=== PATIENT | female | born 1955 | race Caucasian/White ===

== ENCOUNTER 2017-08-19 23:10 | Inpatient (IN) | payer OTHER ==
[~2017-08-19] VITALS: Ht 170.2 cm; Wt 91.7 kg
[2017-08-19] MEDS ORDERED: TYLE325T PO (23:23)
[2017-08-19 23:24] VITALS: BP 165/89; PULSE 92; RESP 18; TEMP 97.5; O2SAT 95
[2017-08-19 23:29] VITALS: O2SAT 95
[2017-08-20] VITALS (19 sets, daily range): BP systolic 120–164; BP diastolic 63–94; PULSE 72–109; RESP 16–27; TEMP 97.8–99; O2SAT 96–98
[2017-08-20 00:01] LABS: AUTOMATED NEUTROPHIL # 6.6 TH/MM3 (1.8-7.7); BASOPHIL # 0.1 TH/MM3 (0-0.2); BASOPHIL % 0.7 % (0.0-2.0); EOSINOPHIL # 0.4 TH/MM3 (0-0.4); EOSINOPHIL % 3.9 % (0.0-4.0); HEMATOCRIT 38.5 % (35.0-46.0); HEMO FLAGS DIFF FINAL; LYMPH % 27.4 % (9.0-44.0); LYMPHOCYTE # 2.9 TH/MM3 (1.0-4.8); MEAN CELL VOLUME 93.4 FL (80.0-100.0); MEAN CORPUSCULAR HEMOGLOBIN 31.1 PG (27.0-34.0); MEAN CORPUSCULAR HGB CONC 33.3 % (32.0-36.0); MONO % 5.5 % (0.0-8.0); NEUT % 62.5 % (16.0-70.0); PLATELET COUNT 299 TH/MM3 (150-450); RED BLOOD COUNT 4.12 MIL/MM3 (4.00-5.30); RED CELL DISTRIBUTION WIDTH 12.3 % (11.6-17.2); WHITE BLOOD COUNT 10.6 TH/MM3 (4.0-11.0)
[2017-08-20 00:02] LABS: POTASSIUM 4.1 MEQ/L (3.5-5.1)
--- NOTE | 2017-08-20 00:05 | RADRPT ---
EXAM DATE/TIME: 08/19/2017 23:43 [place] COMPARISON: No previous studies available for comparison. INDICATIONS : Chest pain. MEDICAL HISTORY : None. SURGICAL HISTORY : None. ENCOUNTER: Initial ACUITY: 1 day PAIN SCORE: 6/10 LOCATION: Bilateral chest FINDINGS: PA and lateral views of the chest demonstrate the lungs to be symmetrically aerated without evidence of mass, infiltrate or effusion. The cardiomediastinal contours are unremarkable. Osseous structure s are intact. CONCLUSION: No acute disease. Willam Smith MD on August 20, 2017 at 0:04 Board Certified Radiologist. This report was verified electronically.
--- NOTE | 2017-08-20 00:17 | PD ---
HPI Chief Complaint: Chest Pain Time Seen by Provider: 00:15 Travel History International Travel<30 days: No Contact w/Intl Traveler<30days: No Traveled to known affect area: No History of Present Illness HPI The patient is a 61-year-old female that complains of a tightness in her lower sternal area today beginning at noon. The pain lasted 5-10 minutes and went away. It came on several times today. She is in no pain now. She denies any nausea but does have some shortness of breath and diaphoresis associated with the pain. She denies any radiation of pain. Her last stress test and was over 4 years ago. FORMERLY [facility], [facility] Past Medical History Diminished Hearing: No Fibromyalgia: Yes GERD: Yes Headaches: Yes Hypertension: Yes Musculoskeletal: Yes (Back pain, Back surgery x3) Tetanus Vaccination: Never Vaccinated Influenza Vaccination: No ?: Not Past Surgical History Section: Yes Social History Alcohol Use: No Tobacco Use: Yes (2 pack per day) Substance Use: Yes (marijuana daily) Allergies-Medications (Allergen,Severity, Reaction): Coded Allergies: codeine (Verified Allergy, Severe, 08/19/17) Reported Meds & Prescriptions Reported Meds & Active Scripts Active Reported Tylenol (Acetaminophen) 325 Mg Tab 325 Mg PO DIRECTED Review of Systems Except as stated in HPI: all other systems reviewed are Neg Physical Exam Narrative GENERAL: [-] The patient is alert, oriented 3 in no apparent distress. Her vital signs show temperature 97.5 with pulse 92 and blood pressure 165/89 but otherwise normal. SKIN: Focused skin assessment warm/dry. HEAD: Atraumatic. Normocephalic. EYES: Pupils equal and round. No scleral icterus. No injection or drainage. ENT: No nasal bleeding or discharge. Mucous membranes pink and moist. NECK: Trachea midline. No JVD. CARDIOVASCULAR: Regular rate and rhythm. No murmur appreciated. RESPIRATORY: No accessory muscle use. Clear to auscultation. Breath sounds equal bilaterally. GASTROINTESTINAL: Abdomen soft, non-tender, nondistended. Hepatic and splenic margins not palpable. No guarding or rebound is present. MUSCULOSKELETAL: No obvious deformities. No clubbing. No cyanosis. No edema. NEUROLOGICAL: Awake and alert. No obvious cranial nerve deficits. Motor grossly within normal limits. Normal speech. PSYCHIATRIC: Appropriate mood and affect; insight and judgment normal. Data Data Last Documented VS Vital Signs Date Time Temp Pulse Resp B/P (MAP) Pulse Ox O2 Delivery O2 Flow Rate FiO2 08/20/17 00:29 86 16 164/82 (109) 97 Room Air 08/19/17 23:24 97.5 Orders Orders Electrocardiogram (08/19/17 23:20) Complete Blood Count With Diff (08/19/17 23:20) Basic Metabolic Panel (Bmp) (08/19/17 23:20) Ckmb (Isoenzyme) Profile (08/19/17 23:20) Troponin I (08/19/17 23:20) Iv Access Insert/Monitor (08/19/17 23:20) Ecg Monitoring (08/19/17 23:20) Oxygen Administration (08/19/17 23:20) Oximetry (08/19/17 23:20) Chest, Pa & Lat (08/19/17 ) Aspirin Chew (Aspirin Chew) (08/20/17 00:30) Nitroglycerin Sl (Nitrostat Sl) (08/20/17 00:30) Admit Order (Ed Use Only) (08/20/17 01:34) Labs Laboratory Tests Test 08/19/17 23:37 White Blood Count 10.6 TH/MM3 Red Blood Count 4.12 MIL/MM3 Hemoglobin 12.8 GM/DL Hematocrit 38.5 % Mean Corpuscular Volume 93.4 FL Mean Corpuscular Hemoglobin 31.1 PG Mean Corpuscular Hemoglobin Concent 33.3 % Red Cell Distribution Width 12.3 % Platelet Count 299 TH/MM3 Mean Platelet Volume 7.9 FL Neutrophils (%) (Auto) 62.5 % Lymphocytes (%) (Auto) 27.4 % Monocytes (%) (Auto) 5.5 % Eosinophils (%) (Auto) 3.9 % Basophils (%) (Auto) 0.7 % Neutrophils # (Auto) 6.6 TH/MM3 Lymphocytes # (Auto) 2.9 TH/MM3 Monocytes # (Auto) 0.6 TH/MM3 Eosinophils # (Auto) 0.4 TH/MM3 Basophils # (Auto) 0.1 TH/MM3 CBC Comment DIFF FINAL Differential Comment Prothrombin Time 10.5 SEC Prothromb Time International Ratio 1.0 RATIO Activated Partial Thromboplast Time 28.7 SEC Blood Urea Nitrogen 10 MG/DL Creatinine 0.84 MG/DL Random Glucose 115 MG/DL Calcium Level 8.4 MG/DL Sodium Level 137 MEQ/L Potassium Level 4.1 MEQ/L Chloride Level 105 MEQ/L Carbon Dioxide Level 26.0 MEQ/L Anion Gap 6 MEQ/L Estimat Glomerular Filtration Rate 69 ML/MIN Total Creatine Kinase 56 U/L Troponin I 0.16 NG/ML [facility] Medical Decision Making Medical Screen Exam Complete: Yes Emergency Medical Condition: Yes Medical Record Reviewed: Yes Interpretation(s) The EKG shows sinus rhythm with a rate of [address] elevation or depression. Nonspecific T-wave inversion is present on aVL. The basic metabolic profile shows a GFR of 69 with calcium 8.4 but is otherwise normal. The CK is normal but the troponin I is 0.16. The CBC is normal. The chest x- ray shows no acute disease. Differential Diagnosis STEMI, non-STEMI, acute coronary syndrome, chest pain etiology undetermined, esophageal pain, pleuritic pain, gastrointestinal pain, chest wall pain, pericarditis Narrative Course The patient may have unstable angina. She has no chest pain at this time but does have a slight elevation of her troponin I. This could be a non-STEMI. Physician Communication Physician Communication I discussed the patient with Dr. Villegas, the patient will be admitted to her at the ICU here at [facility]. Diagnosis Primary Impression: Non-STEMI (non-ST elevated myocardial infarction) Admitting Information Admitting Physician Requests: Admit Monty Garcia MD Aug 20, 2017 00:17
[2017-08-20] MEDS: NITROGLYCERIN 0.4 MG SL 25 TABS/BTL SL SCH ×3 (00:30→00:40)
[2017-08-20] MEDS ORDERED: ASPIRIN 81 MG CHEW TAB PO ONE (00:30)
[2017-08-20] MEDS ORDERED: HEPARIN SODIUM - IV 10,000 UNITS/10 ML VIAL IV PUSH ONE (01:45)
[2017-08-20] MEDS ORDERED: HEPARIN-D5W 25,000 U/250 ML 250 ML IV PRN (01:45)
[2017-08-20] MEDS ORDERED: NALOXONE HCL 0.4 MG/ML AMP IV PUSH PRN (01:45)
[2017-08-20] MEDS ORDERED: NITROGLYCERIN 2% OINT 1 GM PACKET TOP ONE (01:45)
[2017-08-20] MEDS ORDERED: NITROGLYCERIN 0.4 MG SL 25 TABS/BTL SL PRN (01:45)
[2017-08-20] MEDS ORDERED: SODIUM CHLORIDE 0.9% FLUSH 10 ML FLUSH IV FLUSH PRN ×2 (01:45→11:45)
[2017-08-20 02:43] LABS: APTT (PATIENT) 28.7 SEC (24.3-30.1); PROTHROMBIN TIME - PATIENT 10.5 SEC (9.8-11.6)
[2017-08-20] MEDS ORDERED: CHLORHEXIDINE GLUCONATE 2 % 1 PACK (2 CLOTHS)(extra cloths) TOPICAL PRN (03:15)
[2017-08-20] MEDS: CHLORHEXIDINE GLUCONATE 2 % 1 PACK (2 CLOTHS)(taper/protocol) TOPICAL SCH ×2 (03:19→19:57)
[2017-08-20] MEDS ORDERED: HEPARIN SODIUM - IV 10,000 UNITS/10 ML VIAL IV PUSH PRN ×2 (07:45)
[2017-08-20] MEDS ORDERED: SODIUM CHLORIDE 0.9% FLUSH 10 ML FLUSH IV FLUSH SCH (09:00)
[2017-08-20] MEDS: SODIUM CHLOR 0.9% 1000 ML INJ 1,000 ML IV SCH ×2 (09:21→19:21)
[2017-08-20] MEDS ORDERED: diphenhydrAMINE HCL 50 MG CAP PO SCH (09:30)
[2017-08-20] MEDS ORDERED: DIAZEPAM 5 MG TAB PO SCH (09:30)
[2017-08-20] MEDS ORDERED: ASPIRIN 325 MG TAB PO SCH (09:30)
[2017-08-20] MEDS ORDERED: HEPARIN-NS/PF INJ 1,000 ML ONE ×2 (09:58→09:59)
[2017-08-20] MEDS ORDERED: MIDAZOLAM HCL 2 MG/2 ML VIAL ONE (10:00)
--- NOTE | 2017-08-20 10:10 | EKG ---
Date Performed: 08/20/2017 Time Performed: 05:29:29 PTAGE: 61 years EKG: Sinus rhythm POSSIBLE LEFT ATRIAL ENLARGEMENT BORDERLINE ECG PREVIOUS TRACING : 08/19/2017 23.28 Compared to prior tracing no significant change DOCTOR: Luz Goode Interpretating Date/Time 08/20/2017 10:08:45
--- NOTE | 2017-08-20 10:22 | EKG ---
Date Performed: 08/19/2017 Time Performed: 23:28:15 PTAGE: 61 years EKG: Sinus rhythm POSSIBLE LEFT ATRIAL ENLARGEMENT NONSPECIFIC T-WAVE ABNORMALITY BORDERLINE ECG PREVIOUS TRACING : 02/04/2004 03.41 Compared to prior tracing no significant change DOCTOR: Luz Goode Interpretating Date/Time 08/20/2017 10:21:01
[2017-08-20] MEDS ORDERED: BIVALIRUDIN 250 MG VIAL ONE (10:39)
[2017-08-20] MEDS ORDERED: NITROGLYCERIN INJ 5 ML ONE (11:01)
[2017-08-20] MEDS ORDERED: TICAGRELOR 90 MG TAB PO ONE (11:01)
[2017-08-20] MEDS ORDERED: BIVALIRUDIN INJ 250 MG in SODIUM CHLORIDE 0.9% INJ 50 ML IV SCH (11:36)
--- NOTE | 2017-08-20 11:38 | CATHPROC ---
[facility] HIS Report Study Information Study Number Admission Scheduled Start Study Start [id number] Aug 20 2017 1:36AM 08/20/2017 Aug 20 2017 9:48AM [place] [facility] Cardiac Catheterization Admit Source Facility Department Transfer in from another acute care facility [facility] Physician and Clinical Staff Initial Lukas Ascencio Attending Radiologistaroldo Cannon RN, Nadira Royal,ALEJANDRINA Recorder Bre Chatman,RT(R) ScrBarrett Stover,RT(R) Procedures Performed Procedure Location (Site) Vessel Name Angiogram LV LV Ventricle Coronary Angiograms LCA Left Coronary Coronary Angiograms RCA Right Coronary Drug Eluting Inflatio DIAG1 Mid Left Coronary L Heart Cath Wire insertion Fem Art (right) Femoral Art Equipment Time Skeet Operator Description Size Mfg Part Number Used/Scraped WIRE, BALANCE MIDDLEWEIGHT [id number] 10:50 [employer] 190CM Used 190CM *[id number] TRANSDUCER, TRUWAVE [id number] 10:13 CARROLL KERN * Used W/STOCKCOCK *[id number] *[id number] [id number] *[id number] PIGTAIL ANG. 145 INFINITI [id number] CATHETER *[id number] *[id number] 10:13 [employer]al[employer] INDUSTRIES PACK, CCL CUSTOM * Used *[id number] 10:13 SampalRx PACER PEN, SKIN DUAL W/ RULER * Used *[id number] 11:04 MEDTRONIC STENT, 2.75 12MM BIB 2.75 12MM Used *[id number] 11:07 MEDTRONIC STENT, 3.0 15MM BIB 3.0 15MM Used *[id number] 11:05 Novadiol 30 JEMMA INDEFLATOR Used *[id number] 10:13 MTailor MEDICAL SHEATH, FR6.5 PRELUDE 11CM FR 6.5 038ACT Used *[id number] 10:13 Novadiol WIRE, 3MMJ .035 180CM 180CM Used *[id number] 10:13 NAMIC MANIFOLD, 4 PORT * Used *[id number] 10:13 NYCOMED OMNIPAQUE, 350 MG, 100ML 100ML [id number] Used [id number] 10:13 [facility] BLANKET,WARM AIR CCL * Used *[id number] Equipment Model, Serial, Lot Number and Expiration Data Description Model Number Serial Number Lot Number Expiration Date STENT, 2.75 12MM BIB [id number] 02-26-2019 STENT, 3.0 15MM BIB [id number] 05-04-2019 History: Current Medications Medication Dosage/Unit Route Frequency Last Date/Time Taken 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 History: Allergies Allergy Reaction codeine History: Risk Factors Family History of Hypertension Dyslipidemia Previous [place] Previous Heart Failure Premature CAD Yes Yes Yes No No Prior Valve Prior PCI Prior CABG Surgery No No No Cerebrovascular Peripheral Artery Chronic Lung On Dialysis Diabetes Disease Disease Disease No No No No No History: Symptoms/Diagnosis Selection Items Chest pain History: Stress Tests Stress or Imaging Studies Performed No History: Other Disease Selection Items Gerd HTN History: Other Current Smoker Method Quit Packs a Day Years Used Pack Years No Cigarettes 6 Years Ago 2 45 90 Labs Hgb (g/dl) Hct (%) WBC (l/cumm) Platelets (thousands) 11.60-17.00 35.00-51.00 4.00-11.00 150.00-450.00 12.8 38.5 10.6 299 Glucose (mg/dl) BUN (mg/dl) Creatinine (mg/dl) BUN:Creatinine (1:x) 74.00-106.00 7.00-18.00 0.50-1.30 10.00-20.00 69 10 0.8 12.5 Na (meq/l) K (meq/l) 136.00-145.00 3.50-5.10 137 4.1 INR (PTT:PT) 0.90-1.10 1 Troponin I (ng/ml) CPK (u/l) CPK-MB (ng/ML) 0.02-0.05 26.00-308.00 0.50-3.60 0.47 67 Not Drawn Medication Medication Total Dose (Bolus/Oral) Medication Total Dosage/Unit 1% XYLOCAINE 20 mL ANGIOMAX BOLUS 13.5 mL BRILINTA 180 mg FENTANYL 150 mcg NTG (IC) 400 mcg VERSED 1 mg Medications (Bolus/Oral) Medication Time Given Dosage/Unit Administered By Reason VERSED 08/20/2017 10:25:09 AM 1 mg Nadira Brown 1 mg VERSED given in lab by Nadira Brown RN in Right Hand via Peripheral IV. Ordered by Vi Mobley. FENTANYL 08/20/2017 10:29:53 AM 50 mcg Nadira Brown 50 mcg FENTANYL given in lab by Nadira Brown RN in Right Hand via Peripheral IV. Ordered by Lukas Sorensen. 1% XYLOCAINE 08/20/2017 10:31:00 AM 20 mL Lukas Mobley 20 mL 1% XYLOCAINE given in lab by Lukas Mobley in Right Groin via Subcutaneous. FENTANYL 08/20/2017 10:37:00 AM 50 mcg Nadira Brown 50 mcg FENTANYL given in lab by Nadira Brown, ALEJANDRINA in Right Hand via Peripheral IV. Ordered by Lukas Sorensen. ANGIOMAX BOLUS 08/20/2017 10:53:14 AM 13.5 mL Nadira Brown 13.5 mL ANGIOMAX BOLUS given in lab by Nadira Brown RN in Right Hand via Peripheral IV. Ordered b Lukas Max. NTG (IC) 08/20/2017 11:00:00 AM 200 mcg Lukas Mobley 200 mcg NTG (IC) given in lab by Lukas Mobley in Right Groin via Intra-coronary. NTG (IC) 08/20/2017 11:01:21 AM 100 mcg Lukas Mobley 100 mcg NTG (IC) given in lab by Lukas Mobley in Right Groin via Intra-coronary. NTG (IC) 08/20/2017 11:02:33 AM 100 mcg Lukas Mobley 100 mcg NTG (IC) given in lab by Lukas Mobley in Right Groin via Intra-coronary. FENTANYL 08/20/2017 11:14:29 AM 50 mcg Nadira Brown 50 mcg FENTANYL given in lab by Nadira Brown RN in Right Hand via Peripheral IV. Ordered by Lukas Sorensen. BRILINTA 08/20/2017 11:27:10 AM 180 mg Nadira Brown 180 mg BRILINTA given in lab by Nadira Brown, ALEJANDRINA via Oral. Ordered by Lukas Mobley. Medication (Drip) Medication Time Given Dosage/Unit Concentration/Unit Diluent (ml) Solution ANGIOMAX DRIP 08/20/2017 10:54:05 AM 1.716 mg/kg/hr 250 mg 50 NaCl .9 1.716 mg/kg/hr ANGIOMAX DRIP given in lab by Nadira Brown RN in Right Hand via Peripheral IV. Pum p/Drip Flow = 31.5 ml/hr using NaCl .9 with a concentration of 250 mg in 50 ml. Ordered by Lukas Mobley. HEPARIN DRIP STOPPED 08/20/2017 9:50:00 AM 1000 units/hr 0 1000 units/hr HEPARIN DRIP STOPPED given by Nadira Brown RN in Right Hand via Peripheral IV. Pump /Drip Flow = 0 ml/hr using [Solution Name]. IV Solutions 08/20/2017 10:02:31 AM 50 mL (IV) NaCl .9 IV Solutions given in lab by Nadira Brown RN in Right Hand via Peripheral IV. Pump/Drip Flow usin g NaCl .9. NITROGLYCERIN DRIP 08/20/2017 11:22:41 AM 10 mcg/min 50 mg 250 D5W 10 mcg/min NITROGLYCERIN DRIP given in lab by Nadira Brown RN in Right Hand via Peripheral IV. Pu mp/Drip Flow = 3 ml/hr using D5W with a concentration of 50 mg in 250 ml. Ordered by Lukas Mobley. Initial Case Assessment Cardiovascular HR Rhythm NIBP Chest Pain 93 tachy 169/101 0 Edema Present Skin color Skin None Normal Warm Dry Circulatory - Right Pulses Dorsalis Pedis Femoral 1 3 Scale (0,1,2,3,4,d) Circulatory - Left Pulses Dorsalis Pedis Femoral 1 3 Scale (0,1,2,3,4,d) Neurological State Oriented to time-place- Alert Moves all extremities person Respiration - General Respiration Rate SpO2 (%) (B/min) 20 97 Chronological Log Time Study Chronological Log 1000 units/hr HEPARIN DRIP STOPPED given by Nadira Brown RN in Right Hand via Peripheral IV. Pump/Drip Flow = 9:50:00 0 ml/hr using [Solution Name]. 9:57:21 Patient arrived via Bed. Vitals capture started with the following parameters, Patient=Adult, Interval=5 min, Initial Bqbdjopr=446 mmHg, 10:01:59 Deflation Rate=5 mmHg, Cuff placed on Left Arm 10:02:03 Patient Name, D.O.B, / Armband Verified By R.N. 10:02:04 Consent signed by the physician and the patient and verified by the [facility] staff. 10:02:05 Pre-op and post- op instructions given; patient acknowledges understanding of instruction s. 10:02:06 Verbal Stimulation=2 Physical Stimulation=2 Airway=2 Respiration=2 TOTAL=8. (0=absent, 1=li mited, 2=present) 10:02:11 Skin Breakdown- none per pt 10:02:11 Patient has been NPO for More than 6Hrs. 10:02:12 Patient Warmer Placed on the Table. 10:02:13 Manjeet Prominences Protected 10:02:15 A # 20 IV was noted in the Hand (right). Grade = 0 10:02:31 IV Solutions given in lab by Nadira Brown RN in Right Hand via Peripheral IV. Pump/Drip Flow using NaCl .9. 10:02:42 History and physical on the chart or being dictated. Assessment: Initial Case, HR=93 BPM, Rhythm=tachy, NTDT=634/101 mmhg, Chest Pain=0, Edema=None, Color=Normal, Skin = Warm, Dry Right Pulses: Madhu Ped=1, Femoral=3 10:02:43 Left Pulses: Madhu Ped=1, Femoral=3 Neurological: State=Alert, Ox3, FUENTES Respiration: Resp=20 B/min, SpO2=97 % 10:02:46 Reference ECG taken 10:03:11 HR=93 bpm, GFXC=119/101 mmhg, SpO2=98.0 %, Resp=18 B/min 10:07:40 HR=95 bpm, HHMQ=007/101 mmhg, SpO2=96.0 %, Resp=15 B/min 10:12:35 HR=87 bpm, FZHI=200/98 mmhg, SpO2=98.0 %, Resp=18 B/min 10:13:42 MD paged 10:16:30 Pressure channel 1 zeroed. 10:17:36 HR=89 bpm, LMUG=879/100 mmhg, SpO2=97.0 %, Resp=20 B/min 10:22:18 MD arrived. 10:22:37 HR=95 bpm, ZDCW=453/96 mmhg, SpO2=96.0 %, Resp=16 B/min 10:25:09 1 mg VERSED given in lab by Nadira Brown RN in Right Hand via Peripheral IV. Ordered by Lukas Mobley. 10:27:38 HR=95 bpm, OMJI=622/98 mmhg, SpO2=96.0 %, Resp=20 B/min Time Out. Correct patient, correct procedure, correct physician, power injector loaded, or not loaded with contrast with 10:28:46 surgical team present. Time Out Concurred by MD and individual staff in procedure. 10:29:53 50 mcg FENTANYL given in lab by Nadira Brown RN in Right Hand via Peripheral IV. Ordere d by Lukas Mobley. 10:30:01 Case Start 10:31:00 20 mL 1% XYLOCAINE given in lab by Lukas Mobley in Right Groin via Subcutaneous. 10:32:37 HR=94 bpm, RLLN=911/94 mmhg, SpO2=95.0 %, Resp=14 B/min 10:33:07 Access site was Right Femoral Artery. 10:33:15 A SHEATH, FR6.5 PRELUDE 11CM FR 6.5 was advanced into the Fem Art (right) using the Percuta neous technique. A PIGTAIL ANG. 145 INFINITI CATHETER FR 6 was advanced over a wire. OMNIPAQUE, 350 MG, 100ML 10 0ML was 10:33:34 used for injections. Recorded Pressure: LV, HR=91, Condition=Condition 1 10:35:39 (Left Ventricle) LV 145/7/10 10:36:30 The LV was injected at 10 cc/sec for a total of 40. OMNIPAQUE, 350 MG, 100ML 100ML used. 10:37:00 50 mcg FENTANYL given in lab by Nadira Brown RN in Right Hand via Peripheral IV. Ordere d by Lukas Mobley. Recorded Pressure: LV, Ao, HR=96, Condition=Condition 1 10:37:02 (Left Ventricle) LV 150/13/16, (Aorta) Ao 148/77/107 After removing the current catheter a JL 4.0 INFINITI CATHETER FR 6 was advanced over a WIRE, 3 MMJ .035 180CM 10:37:33 180CM. 10:37:38 HR=92 bpm, OXBS=067/91 mmhg, SpO2=93.0 %, Resp=13 B/min 10:38:45 The LCA was injected and visualized at various angles. OMNIPAQUE, 350 MG, 100ML 100ML used . Recorded Pressure: Ao, HR=89, Condition=Condition 1 10:39:12 (Aorta) Ao 139/74/101 10:42:37 HR=95 bpm, XQHR=995/89 mmhg, SpO2=91.0 %, Resp=12 B/min 10:44:38 Catheter was removed A JR 4.0 INFINITI CATHETER FR 6 was advanced over a wire. OMNIPAQUE, 350 MG, 100ML 100ML was us ed for 10:45:06 injections. 10:46:09 The RCA was injected and visualized at various angles. OMNIPAQUE, 350 MG, 100ML 100ML used . 10:47:00 Catheter was removed 10:47:38 HR=91 bpm, FEFE=388/97 mmhg, SpO2=96.0 %, Resp=10 B/min 10:52:39 HR=94 bpm, FZXR=434/96 mmhg, SpO2=94.0 %, Resp=14 B/min 13.5 mL ANGIOMAX BOLUS given in lab by Nadira Borwn, ALEJANDRINA in Right Hand via Peripheral IV. Ord ered by Itz, 10:53:14 Lukas. 1.716 mg/kg/hr ANGIOMAX DRIP given in lab by Nadira Brown RN in Right Hand via Peripheral I V. Pump/Drip Flow 10:54:05 = 31.5 ml/hr using NaCl .9 with a concentration of 250 mg in 50 ml. Ordered by Lukas Mobley. A XB 3.5 GUIDE CATHETER FR 6 was advanced over a wire. OMNIPAQUE, 350 MG, 100ML 100ML was used for 10:54:30 injections. 10:56:17 A WIRE, BALANCE MIDDLEWEIGHT 190CM 190CM was inserted via Fem Art (right). 10:57:42 HR=93 bpm, FXXM=458/92 mmhg, SpO2=95.0 %, Resp=13 B/min 10:59:57 Interventional wire has crossed the lesion in the diag 11:00:00 200 mcg NTG (IC) given in lab by Lukas Mobley in Right Groin via Intra-coronary. 11:01:21 100 mcg NTG (IC) given in lab by Lukas Mobley in Right Groin via Intra-coronary. 11:02:33 100 mcg NTG (IC) given in lab by Lukas Mobley in Right Groin via Intra-coronary. 11:02:43 HR=97 bpm, BPAQ=642/87 mmhg, SpO2=95 %, Resp=15 B/min A STENT, 2.75 12MM BIB 2.75 12MM was advanced through a XB 3.5 GUIDE CATHETER FR 6 over a WIRE , BALANCE 11:03:58 MIDDLEWEIGHT 190CM 190CM. A STENT, 2.75 12MM BIB 2.75 12MM was deployed using a 30 JEMMA INDEFLATOR at 10 atmospheres for 27 seconds 11:05:01 in the DIAG1 Mid. 11:06:10 Delivery device removed 11:07:38 HR=94 bpm, MORR=953/99 mmhg, SpO2=95.0 %, Resp=14 B/min A STENT, 3.0 15MM BIB 3.0 15MM was advanced through a XB 3.5 GUIDE CATHETER FR 6 over a WIRE, BALANCE 11:09:16 MIDDLEWEIGHT 190CM 190CM. A STENT, 3.0 15MM BIB 3.0 15MM was deployed using a 30 JEMMA INDEFLATOR at 12 atmospheres for 20 seconds in 11:09:18 the DIAG1 Mid. 11:09:50 Re-inflated the stent balloon in the DIAG1 Mid to 16 JEMMA for 13 seconds. 11:10:58 Delivery device removed 11:12:41 HR=96 bpm, CPIE=593/93 mmhg, SpO2=96.0 %, Resp=13 B/min 11:14:29 50 mcg FENTANYL given in lab by Nadira Brown RN in Right Hand via Peripheral IV. Ordere d by Lukas Mobley. The delivery device, 3.0 15MM BIB 3.0 15MM was advanced through a XB 3.5 GUIDE CATHETER FR 6 o mare a WIRE, 11:15:39 BALANCE MIDDLEWEIGHT 190CM 190CM for stent reinflation. 11:16:45 Re-inflated the stent balloon in the DIAG1 Mid to 16 JEMMA for 18 seconds. 11:17:22 Re-inflated the stent balloon in the DIAG1 Mid to 19 JEMMA for 19 seconds. 11:17:40 HR=96 bpm, QBXU=063/99 mmhg, SpO2=95.0 %, Resp=12 B/min 11:18:23 Delivery device removed 11:20:01 Wire removed 11:20:03 Catheter was removed 11:20:18 Case End 10 mcg/min NITROGLYCERIN DRIP given in lab by Nadira Brown, RN in Right Hand via Peripheral IV. Pump/Drip Flow 11:22:41 = 3 ml/hr using D5W with a concentration of 50 mg in 250 ml. Ordered by Lukas Mobley. 11:22:44 HR=93 bpm, IPHQ=031/100 mmhg, SpO2=96.0 %, Resp=11 B/min 11:26:[address], A-line will be hooked up in pateint's room 11:27:01 In the Fem Art (right) the SHEATH, FR6.5 PRELUDE 11CM FR 6.[address] by Lukas Sorensen. 11:27:10 180 mg BRILINTA given in lab by Nadira Brown, ALEJANDRINA via Oral. Ordered by Lukas Mobley. 11:27:40 Sterile dressing applied to site 11:27:41 No case complications noted. 11:27:45 Cine recording checked. 11:27:47 Bedside Report will be given. 11:27:49 HR=89 bpm, LVQH=160/95 mmhg, SpO2=95.0 %, Resp=14 B/min 11:27:49 Implantable Device card placed in patient's chart. 11:27:52 Floor notified of successful intervention. 11:28:01 A Left Heart Cath was performed. 11:32:46 HR=92 bpm, GWDO=445/96 mmhg, SpO2=96.0 %, Resp=16 B/min 11:35:00 Patient moved to stretcher 11:37:26 Vitals capture stopped. End Study - Contrast Media Used In Study Contrast Total Opened (mL) Total Used (mL) Total Wasted (mL) Omnipaque 220 220 0 End Study - Maximum Contrast Load Max Contrast Load (mL) 573.9 End Study - Radiation Exposure Fluoro Time (minutes) 10.8 End Study - Patient Disposition Complications Transferred To Interventional Outcome No Telemetry Bed successful
[2017-08-20] MEDS ORDERED: MORPHINE SULFATE 4 MG/ML INJ IV PUSH PRN (11:45)
[2017-08-20] MEDS ORDERED: ACETAMINOPHEN 325 MG TAB PO PRN (11:45)
[2017-08-20] MEDS ORDERED: ONDANSETRON HCL 4 MG/2 ML VIAL IV PUSH PRN (11:45)
[2017-08-20] MEDS ORDERED: SODIUM CHLOR 0.9% 250 ML INJ 250 ML IV PRN (11:45)
[2017-08-20] MEDS ORDERED: ATROPINE SULFATE 1 MG/ML VIAL IV PUSH PRN (11:45)
[2017-08-20] MEDS ORDERED: NITROGLYCERIN-D5W 50 MG/250 ML 250 ML IV PRN (11:45)
[2017-08-20] MEDS ORDERED: MISC INFORMATION XX ONE (11:45)
[2017-08-20] MEDS ORDERED: SODIUM CHLOR 0.9% 1000 ML INJ 1,000 ML IV SCH (12:00)
--- NOTE | 2017-08-20 12:06 | MA ---
cc: DARIN BUTTS M.D. DATE: 08/20/2017 PROCEDURE PERFORMED 1. Left heart catheterization. 2. Left ventriculography. 3. Coronary angiography. 4. Complex stenting of the major diagonal branch of the left anterior descending coronary artery. HISTORY Denia Fritz is a 61-year-old woman with a strong family history, history of smoking, suspected hypertension, hyperlipidemia, who came in after prolonged squeezing chest pain and elevation of her troponin consistent with an acute non-ST segment elevation HI. DESCRIPTION OF PROCEDURE The patient was brought to the cardiac electronic lab technician in a fasting state. Using 1% lidocaine for local anesthesia a 6.5 Mexican sheath was easily inserted in the right femoral artery. Left ventricular pressure was then recorded using a pigtail catheter followed by left ventriculography and then a pullback. Coronary angiography was then completed with a left 4 Pravin for the left coronary artery and a 3-D RC for the right coronary artery. I opted to perform intervention. Intravenous Angiomax was started. I used an XB 3.5 guiding catheter. I wired the diagonal branch with a BMW wire. I then directly stented the proximal portion of this with a 2.75 x 12 mm Resolute Irons stent. There was stenosis and spasm on the distal and so I placed a 3.0 x 15 mm Resolute Ricky stent overlapping the previous stent to cover the more mid area of the diagonal branch. Subsequently post dilated with the same balloon on the distal end at 16 atmospheres and on the proximal end at 19 atmospheres with an excellent angiographic result. She did have some persistent angina for which I gave her some IV fentanyl and started 10 mcg nitroglycerin drip. The stent results looked excellent however. There were no complications. Estimated blood loss was 10 cc. The patient has been loaded with Brilinta. She will have her sheath pulled later. FINDINGS HEMODYNAMICS Left ventricular pressure is 150/13 with an end-diastolic pressure of 16. The aortic pressure is 139/74 with a mean of 101. There was no gradient during pullback from the left ventricle to the aorta. LEFT VENTRICULOGRAPHY Left ventriculography shows an ejection fraction of about 35%. It appears to be somewhat global hypokinesis but particularly in the anterolateral and inferoapical segments. CORONARY ANGIOGRAPHY The left main coronary artery is short and normal-appearing. It bifurcates into the LAD and diagonal branches. The LAD gives off a very proximal branch which courses like a ramus, but technically could be called a diagonal since it comes off the LAD. Just before this branch is given off there is an eccentric slit-like stenosis in the LAD that does not appear to be more severe than 40 or at most 50%, and is only seen in a couple of views despite multiple angulated views of the LAD. The remainder of the LAD then has about a 40% stenosis where the first septal comes off and then about a 40-50% mid stenosis. The remainder of the LAD is tortuous with irregularities. The diagonal branch has a focal 99% proximal stenosis and there is an area disease distal to this and subsequently the whole segment was stented. The circumflex artery gives off an early small obtuse marginal branch which appears normal. The mid circumflex has about a 35% stenosis. The right coronary artery is a large hyper-dominant vessel with minor irregularities only. RESULTS OF STENTING Following stenting of the diagonal branch a 0% residual stenosis has been achieved and there is CHANDNI-III flow. CONCLUSIONS 1. Moderately impaired LV function. 2. Unremarkable hemodynamics. 3. Two-vessel coronary artery disease involving the LAD and a large diagonal which is technically more like a ramus intermediate type vessel in terms of where the vessel courses. An excellent stent result was achieved in the diagonal/ramus. The LAD disease will be treated medically for now. PLAN The patient will be placed on 81 mg aspirin, Brilinta, and will also be started on a beta daniela as well as amlodipine and additionally a statin. Anticipate discharge tomorrow if she remains stable. MD MAGUI Banuelos/CHUY /11:31 AM /11:42 AM
[2017-08-20] MEDS ORDERED: BACITRACIN OINT 0.9 GM PKT TOP ONE (12:15)
[2017-08-20] MEDS ORDERED: amLODIPine BESYLATE 5 MG TAB PO SCH ×2 (12:15→13:00)
[2017-08-20] MEDS: METOPROLOL TARTRATE 25 MG TAB PO SCH ×2 (12:51→19:56)
[2017-08-20 13:08] LABS: HDL CHOLESTEROL 45.9 MG/DL (40.0-60.0)
[2017-08-20] MEDS ORDERED: IOHEXOL 350 MG/ML 50 ML BTL (for Cath Lab) OTHER ONE (13:47)
[2017-08-20] MEDS ORDERED: IOHEXOL 350 MG/ML 100 ML BTL (for Cath Lab) OTHER ONE (13:47)
[2017-08-20] MEDS ORDERED: ATROPINE SULFATE 1 MG/10 ML SYRINGE ONE (14:12)
[2017-08-20] MEDS: oxyCODONE/ACETAMINOPHEN 5 MG/325 MG TAB PO PRN ×2 (14:21→19:56)
[2017-08-20 14:30] LABS: APTT (PATIENT) 47.1 SEC (24.3-30.1)
--- NOTE | 2017-08-20 14:50 | HHI.HP ---
HPI Service [facility] Primary Care Physician Denia Pedraza, DO Admission Diagnosis non-STEMI Diagnoses: Travel History International Travel<30 Days: No Contact w/Intl Traveler <30 Da: No Traveled to Known Affected Are: No History of Present Illness Pt is 61 year old female w PMHx of tobaccoism, GERD/Tony's esophagus presented to the ED w chest pains. Pt was transferred here as NSTEMI. Pt is currently s/p left cardiac cath/Left ventriculoplasty and s/p complex stenting of the major diagonal branch of the left ant. descending coronary art POD 0. Pt tells me that last night she started experiencing mid chest squeezing pain on and off. Finally she woke up due to the pain and decided to call 911 as the pain wouldn't go away. She didn't have any radiation to arm, neck or jaw but was experiencing some numbness and tingling in her fingers. Pt currently feels much better, denies any CP but does complain of some back pain from laying flat. Tells me that she has had 3 back sx in the past. Denies any nausea or vomiting at this time. no difficulty w urination. No abdominal pain. Review of Systems Except as stated in HPI: all other systems reviewed are Neg Past Family Social History Past Medical History borderline hypo/hyperthyroidism but not on any meds GERD/Barrets esophagus, used to see Dr. Tilley. Past Surgical History back sx x 3 cholecystectomy cardiac cath c/s x1 Allergies: Coded Allergies: codeine (Verified Allergy, Severe, 08/19/17) Family History mother and father had [place], HTN, DM Social History smokes 2ppd since the age of 15 denies alcohol use smokes marijuana on and off for her back pain and nausea Physical Exam Vital Signs Vital Signs Date Time Temp Pulse Resp B/P (MAP) Pulse Ox O2 Delivery O2 Flow Rate FiO2 08/20/17 12:57 97.8 95 18 120/86 (97) 98 08/20/17 07:00 109 18 149/88 (108) 08/20/17 06:05 102 27 161/94 (116) 08/20/17 06:00 98 08/20/17 05:01 94 18 144/81 (102) 08/20/17 04:05 97.9 86 24 129/63 (85) 96 08/20/17 04:00 84 08/20/17 03:02 98.0 145/76 (99) 96 08/20/17 02:30 90 16 152/83 (106) 98 Room Air 08/20/17 00:29 86 16 164/82 (109) 97 Room Air 08/19/17 23:29 95 Room Air 08/19/17 23:29 92 18 95 Room Air 08/19/17 23:24 97.5 92 18 165/89 (114) 95 Physical Exam GENERAL: This is a well-nourished, well-developed patient, laying flat in bed SKIN: No rashes, no ecchymosis or hematoma noted in the right groin area HEAD: Atraumatic. Normocephalic. EYES: Pupils equal round and reactive. Extraocular motions intact. ENT: Nose without drainage. Airway patent. NECK: Trachea midline. CARDIOVASCULAR: Regular rate and rhythm without murmurs RESPIRATORY: Clear to auscultation. Breath sounds equal bilaterally. No wheezes GASTROINTESTINAL: Abdomen soft, non-tender, nondistended. No guarding. MUSCULOSKELETAL: Extremities without edema. No calf tenderness. Negative Homans sign bilaterally. NEUROLOGICAL: Awake and alert. Cranial nerves II through XII intact. Motor and sensory grossly within normal limits. Normal speech. Laboratory Laboratory Tests Test 08/19/17 23:37 08/20/17 02:12 08/20/17 03:41 08/20/17 04:45 White Blood Count 10.6 Red Blood Count 4.12 Hemoglobin 12.8 Hematocrit 38.5 Mean Corpuscular Volume 93.4 Mean Corpuscular Hemoglobin 31.1 Mean Corpuscular Hemoglobin Concent 33.3 Red Cell Distribution Width 12.3 Platelet Count 299 Mean Platelet Volume 7.9 Neutrophils (%) (Auto) 62.5 Lymphocytes (%) (Auto) 27.4 Monocytes (%) (Auto) 5.5 Eosinophils (%) (Auto) 3.9 Basophils (%) (Auto) 0.7 Neutrophils # (Auto) 6.6 Lymphocytes # (Auto) 2.9 Monocytes # (Auto) 0.6 Eosinophils # (Auto) 0.4 Basophils # (Auto) 0.1 CBC Comment DIFF FINAL Differential Comment Prothrombin Time 10.5 Prothromb Time International Ratio 1.0 Activated Partial Thromboplast Time 28.7 Blood Urea Nitrogen 10 Creatinine 0.84 Random Glucose 115 Calcium Level 8.4 Sodium Level 137 Potassium Level 4.1 Chloride Level 105 Carbon Dioxide Level 26.0 Anion Gap 6 Estimat Glomerular Filtration Rate 69 Total Creatine Kinase 56 67 Troponin I 0.16 0.47 Magnesium Level 1.7 Nasal Screen MRSA (PCR) MRSA NOT DETECTED Triglycerides Level 190 Cholesterol Level 163 LDL Cholesterol 79 HDL Cholesterol 45.9 Cholesterol/HDL Ratio 3.55 Test 08/20/17 14:03 Activated Partial Thromboplast Time 47.1 Result Diagram: 08/19/17233608/19/172336 Caprinyassine VTE Risk Assessment Silvia VTE Risk Assessment: No/Low Risk (score <= 1) Caprini Risk Assessment Model Point Value = 1 Point Value = 2 Point Value = 3 Point Value = 5 Age 41-60 Minor surgery BMI > 25 kg/m2 Swollen legs Varicose veins or History of unexplained or recurrent spontaneous Oral contraceptives or hormone replacement Sepsis (< 1 month) Serious lung disease, including pneumonia (< 1 month) Abnormal pulmonary function Acute myocardial infarction Congestive heart failure (< 1 month) History of inflammatory bowel disease Medical patient at bed rest Age 61-74 Arthroscopic surgery Major open surgery (> 45 min) Laparoscopic surgery (> 45 min) Malignancy Confined to bed (> 72 hours) Immobilizing plaster cast Central venous access Age >= 75 History of VTE Family history of VTE Factor V Leiden Prothrombin [id number] Lupus anticoagulant Anticardiolipin antibodies Elevated serum homocysteine Heparin-induced thrombocytopenia Other congenital or acquired thrombophilia Stroke (< 1 month) Elective arthroplasty Hip, pelvis, or leg fracture Acute spinal cord injury (< 1 month) Prophylaxis Regimen Total Risk Factor Score Risk Level Prophylaxis Regimen 0-1 Low Early ambulation 2 Moderate Order ONE of the following: *Sequential Compression Device (SCD) *Heparin 5000 units SQ BID 3-4 Higher Order ONE of the following medications: *Heparin 5000 units SQ TID *Enoxaparin/Lovenox 40 mg SQ daily (WT < 150 kg, CrCl > 30 mL/min) *Enoxaparin/Lovenox 30 mg SQ daily (WT < 150 kg, CrCl > 10-29 mL/min) *Enoxaparin/Lovenox 30 mg SQ BID (WT < 150 kg, CrCl > 30 mL/min) AND/OR *Sequential Compression Device (SCD) 5 or more Highest Order ONE of the following medications: *Heparin 5000 units SQ TID (Preferred with Epidurals) *Enoxaparin/Lovenox 40 mg SQ daily (WT < 150 kg, CrCl > 30 mL/min) *Enoxaparin/Lovenox 30 mg SQ daily (WT < 150 kg, CrCl > 10-29 mL/min) *Enoxaparin/Lovenox 30 mg SQ BID (WT < 150 kg, CrCl > 30 mL/min) AND *Sequential Compression Device (SCD) Assessment and Plan Assessment and Plan NSTEMI: elevated trops and chest pains. s/p cardiac cath w stenting of the major diagonal branch of the left ant. descending coronary art. POD 0. Management per cardiology. Pt on ASA, Brilinta and Lipitor. morphine/nitro prn. Tobaccoism: pt has been strongly counseled on quitting. She voices her understanding. 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 Pt voices her understanding. HTN: pt on amlodipine 5mg po daily and lopressor 25mg po BID. will add vasotec prn BP>160/90 DVT: SCD Code Status Pt tells me she is full code Discussed Condition With patient and RN Kirstin Butcher MD Aug 20, 2017 14:50
[2017-08-20] MEDS ORDERED: ENALAPRILAT 1.25 MG/ML VIAL IV PUSH PRN (15:00)
--- NOTE | 2017-08-20 16:27 | ECHRPT ---
Indication: CORONARY ATHEROSCLEROSIS CONCLUSIONS Normal left ventricular size. Mild concentric left ventricular hypertrophy. The left ventricular systolic function is severely reduced with an estimated ejection fraction in th e range of 30-35%. The left atrial size is moderately dilated. [id number] mitral valve regurgitation. There is trace tricuspid valve regurgitation. BP: 149 / 88 HR: Rhythm: Sinus MEASUREMENTS (Male / Female) Normal Values Technical Quality:Fair 2D ECHO LV Diastolic Diameter PLAX 5.1 cm 4.2 - 5.9 / 3.9 - 5.3 cm LV Systolic Diameter PLAX 4.1 cm IVS Diastolic Thickness 1.2 cm 0.6 - 1.0 / 0.6 - 0.9 cm LVPW Diastolic Thickness 1.2 cm 0.6 - 1.0 / 0.6 - 0.9 cm LV Relative Wall Thickness 0.5 RV Internal Dim ED PLAX 2.8 cm LVOT Diameter 2.0 cm Aortic Root Diameter 2.5 cm LA Systolic Diameter LX 3.8 cm 3.0 - 4.0 / 2.7 - 3.8 cm M-MODE AV Cusp Separation MM 1.8 cm DOPPLER AV Peak Velocity 136.0 cm/s AV Peak Gradient 7.4 mmHg AV Mean Gradient 4.0 mmHg AV Velocity Time Integral 26.6 cm LVOT Peak Velocity 61.7 cm/s LVOT Peak Gradient 1.5 mmHg LVOT Velocity Time Integral 11.7 cm AV Area Cont Eq vti 1.4 cm AV Area Cont Eq pk 1.4 cm Mitral E Point Velocity 63.2 cm/s Mitral A Point Velocity 83.4 cm/s Mitral E to A Ratio 0.8 LV E' Lateral Velocity 4.3 cm/s Mitral E to LV E' Lateral Ratio 14.7 LV E' Septal Velocity 8.3 cm/s Mitral E to LV E' Septal Ratio 7.6 TR Peak Velocity 166.0 cm/s TR Peak Gradient 11.0 mmHg Right Atrial Pressure 10.0 mmHg Pulmonary Artery Systolic Pressu 21.0 mmHg Right Ventricular Systolic Press 21.0 mmHg PV Peak Velocity 63.9 cm/s PV Peak Gradient 1.6 mmHg FINDINGS LEFT VENTRICLE Normal left ventricular size. Mild concentric left ventricular hypertrophy. The left ventricular systolic function is severely reduced with an estimated ejection fraction in th e range of 30-35%. RIGHT VENTRICLE Normal right ventricular size and systolic function. LEFT ATRIUM The left atrial size is moderately dilated. RIGHT ATRIUM The right atrial size is normal. ATRIAL SEPTUM Normal atrial septal thickness without atrial level shunting by limited color doppler interrogation. AORTA The aortic root and proximal ascending aorta are normal in size on limited imaging. MITRAL VALVE Omsx-of-dxdaxinv mitral valve regurgitation. AORTIC VALVE Trileaflet aortic valve. No aortic valve stenosis or regurgitation. TRICUSPID VALVE There is trace tricuspid valve regurgitation. PULMONARY VALVE No pulmonary valve regurgitation or stenosis. VESSELS The inferior vena cava is normal in size. PERICARDIUM No pericardial effusion. Kareem Ramsey MD, FACC (Electronically Signed) Final Date:20 August 2017 16:27
[2017-08-20] MEDS: NITROGLYCERIN 2% OINT 1 GM PACKET TOPICAL SCH (18:00)
[2017-08-20] MEDS: SODIUM CHLORIDE 0.9% FLUSH 10 ML FLUSH IV FLUSH SCH (19:57)
[2017-08-21] VITALS (11 sets, daily range): BP systolic 118–139; BP diastolic 62–90; PULSE 68–82; RESP 18–20; TEMP 98.2–98.4; O2SAT 95
[2017-08-21] MEDS: NITROGLYCERIN 2% OINT 1 GM PACKET TOPICAL SCH ×2 (00:58→04:45)
[2017-08-21] MEDS: CHLORHEXIDINE GLUCONATE 2 % 1 PACK (2 CLOTHS)(taper/protocol) TOPICAL SCH (03:33)
[2017-08-21] MEDS: oxyCODONE/ACETAMINOPHEN 5 MG/325 MG TAB PO PRN ×2 (04:45→10:28)
[2017-08-21] MEDS: SODIUM CHLOR 0.9% 1000 ML INJ 1,000 ML IV SCH (05:21)
[2017-08-21 06:56] LABS: AUTOMATED NEUTROPHIL # 9.2 TH/MM3 (1.8-7.7); BASOPHIL % 0.3 % (0.0-2.0); EOSINOPHIL # 0.4 TH/MM3 (0-0.4); EOSINOPHIL % 3.4 % (0.0-4.0); HEMATOCRIT 38.3 % (35.0-46.0); HEMO FLAGS DIFF FINAL; LYMPH % 16.6 % (9.0-44.0); LYMPHOCYTE # 2.1 TH/MM3 (1.0-4.8); MEAN CELL VOLUME 95.5 FL (80.0-100.0); MEAN CORPUSCULAR HEMOGLOBIN 31.9 PG (27.0-34.0); MEAN CORPUSCULAR HGB CONC 33.4 % (32.0-36.0); MONO % 5.6 % (0.0-8.0); NEUT % 74.1 % (16.0-70.0); PLATELET COUNT 283 TH/MM3 (150-450); RED BLOOD COUNT 4.01 MIL/MM3 (4.00-5.30); RED CELL DISTRIBUTION WIDTH 13.2 % (11.6-17.2); WHITE BLOOD COUNT 12.4 TH/MM3 (4.0-11.0)
[2017-08-21 07:19] LABS: BICARBONATE 26.7 MEQ/L (21.0-32.0); POTASSIUM 3.8 MEQ/L (3.5-5.1)
[2017-08-21] MEDS ORDERED: AMLO5 PO (08:56)
[2017-08-21] MEDS ORDERED: ASPI81 PO (08:56)
[2017-08-21] MEDS ORDERED: ATOR40TA16 PO (08:56)
[2017-08-21] MEDS ORDERED: BRIL90TA PO (08:56)
[2017-08-21] MEDS ORDERED: METO25TA3 PO (08:56)
[2017-08-21] MEDS ORDERED: ATORVASTATIN 40 MG TAB PO SCH (09:00)
[2017-08-21] MEDS ORDERED: ASPIRIN 81 MG CHEW TAB PO SCH (09:00)
[2017-08-21] MEDS ORDERED: TICAGRELOR 90 MG TAB PO SCH (09:00)
--- NOTE | 2017-08-21 09:58 | PD.CARD.PN ---
Subjective Subjective Remarks Tired. Right groin sore. No angina Objective Medications Current Medications Medications (Trade) Dose Ordered Sig/Lucien Route Start Time Stop Time Status Last Admin (Narcan Inj) 0.4 mg UNSCH PRN IV PUSH 08/20/17 01:45 (Nitrostat Sl) 0.4 mg Q5M PRN SL 08/20/17 01:45 Miscellaneous Information Patient in critical care unit? Ass... [id number] .XX 08/20/17 03:15 (Chlorhexidine 2% Cloth) 3 pack DAILY@04 TOPICAL 08/20/17 04:00 08/24/17 04:01 08/20/17 03:19 (Chlorhexidine 2% Cloth) 3 pack UNSCH PRN TOPICAL 08/20/17 03:15 08/25/17 03:02 (Lopressor) 25 mg Q12HR PO 08/20/17 09:00 08/20/17 19:56 Sodium Chloride 1,000 ml @ 100 mls/hr Q10H IV 08/20/17 09:21 08/25/17 09:20 (Aspirin) 325 mg FILM REPRODUCER PO 08/20/17 09:30 08/24/17 09:29 (Benadryl) 50 mg FILM REPRODUCER PO 08/20/17 09:30 08/24/17 09:29 (Valium) 5 mg FILM REPRODUCER PO 08/20/17 09:30 08/24/17 09:29 (NS Flush) 2 ml UNSCH PRN IV FLUSH 08/20/17 11:45 (NS Flush) 2 ml BID IV FLUSH 08/20/17 21:00 08/20/17 19:57 (Tylenol) 325 mg Q4H PRN PO 08/20/17 11:45 (Percocet 5-325 Mg) 1 tab Q4H PRN PO 08/20/17 11:45 08/21/17 04:45 (Morphine Inj) 2 mg Q30M PRN IV PUSH 08/20/17 11:45 (Aspirin Chew) 81 mg DAILY PO 08/21/17 09:00 (Brilinta) 90 mg BID PO 08/21/17 09:00 Nitroglycerin/ Dextrose 250 ml @ 6 mls/hr TITRATE PRN IV 08/20/17 11:45 (Atropine Inj) 0.5 mg UNSCH PRN IV PUSH 08/20/17 11:45 Sodium Chloride 250 ml @ 500 mls/hr ONCE PRN IV 08/20/17 11:45 08/21/17 11:44 (Zofran Inj) 4 mg Q4H PRN IV PUSH 08/20/17 11:45 (Vasotec Inj) 1.25 mg Q6H PRN IV PUSH 08/20/17 15:00 Vital Signs / I&O Vital Signs Date Time Temp Pulse Resp B/P (MAP) Pulse Ox O2 Delivery O2 Flow Rate FiO2 08/21/17 05:53 73 08/21/17 05:45 20 08/21/17 05:00 72 08/21/17 04:00 98.3 76 18 118/62 (80) 95 08/21/17 04:00 71 08/21/17 04:00 Nasal Cannula 2.00 08/21/17 03:00 68 08/21/17 02:00 78 08/21/17 01:00 78 08/21/17 00:00 75 08/21/17 00:00 98.4 80 20 139/90 (106) 95 08/21/17 00:00 Nasal Cannula 2.00 08/20/17 23:00 72 08/20/17 22:00 76 08/20/17 21:00 76 08/20/17 20:00 Nasal Cannula 2.00 08/20/17 20:00 99.0 77 20 151/86 (107) 98 08/20/17 20:00 78 08/20/17 19:00 88 08/20/17 18:00 80 08/20/17 17:00 85 08/20/17 16:00 85 08/20/17 15:00 98.8 94 18 156/94 (114) 97 08/20/17 12:57 97.8 95 18 120/86 (97) 98 I/O 08/20/17 08/20/17 08/20/17 08/21/17 08/21/17 08/21/17 07:00 15:00 23:00 07:00 15:00 23:00 Intake Total 240 ml Output Total 150 ml 200 ml 200 ml Balance -150 ml -200 ml -200 ml 240 ml Intake Oral 240 ml Output Urine Total 150 ml 200 ml 200 ml # Voids 2 Physical Exam GENERAL: Well developed, well nourished. No acute distress. HEENT: Jugular venous pressure is normal. CHEST: Lungs clear to auscultation bilaterally. Unlabored respiratory effort. CARDIAC: Regular rate and rhythm ABDOMEN: Soft, nontender, no hepatosplenomegaly. Bowel sounds present. EXTREMITIES: No clubbing, cyanosis, or edema. Right groin no hematoma Laboratory Laboratory Tests Test 08/20/17 14:03 08/21/17 04:32 Activated Partial Thromboplast Time 47.1 SEC Total Creatine Kinase 53 U/L 62 U/L Troponin I 0.75 NG/ML White Blood Count 12.4 TH/MM3 Red Blood Count 4.01 MIL/MM3 Hemoglobin 12.8 GM/DL Hematocrit 38.3 % Mean Corpuscular Volume 95.5 FL Mean Corpuscular Hemoglobin 31.9 PG Mean Corpuscular Hemoglobin Concent 33.4 % Red Cell Distribution Width 13.2 % Platelet Count 283 TH/MM3 Mean Platelet Volume 7.8 FL Neutrophils (%) (Auto) 74.1 % Lymphocytes (%) (Auto) 16.6 % Monocytes (%) (Auto) 5.6 % Eosinophils (%) (Auto) 3.4 % Basophils (%) (Auto) 0.3 % Neutrophils # (Auto) 9.2 TH/MM3 Lymphocytes # (Auto) 2.1 TH/MM3 Monocytes # (Auto) 0.7 TH/MM3 Eosinophils # (Auto) 0.4 TH/MM3 Basophils # (Auto) 0.0 TH/MM3 CBC Comment DIFF FINAL Differential Comment Blood Urea Nitrogen 11 MG/DL Creatinine 0.67 MG/DL Random Glucose 107 MG/DL Calcium Level 8.7 MG/DL Sodium Level 137 MEQ/L Potassium Level 3.8 MEQ/L Chloride Level 104 MEQ/L Carbon Dioxide Level 26.7 MEQ/L Anion Gap 6 MEQ/L Estimat Glomerular Filtration Rate 90 ML/MIN Assessment and Plan Problem List: (1) Stented coronary artery ICD Codes: Z95.5 - Presence of coronary angioplasty implant and graft Plan: Cont ASA 81mg + Brilinta 90 mg bid. OK to be on Nexium she has been taking for GERD (2) Tobacco abuse ICD Codes: Z72.0 - Tobacco use Plan: Counseled (3) Left ventricular dysfunction with reduced left ventricular function ICD Codes: I51.9 - Heart disease, unspecified Plan: Continue Metoprolol 25mg bid and lisinopril 10 mg daily (4) CAD (coronary artery disease) ICD Codes: I25.10 - Atherosclerotic heart disease of [place] coronary artery without angina pectoris Plan: Diagonal/ramus has been stented. Medical tx of LAD disease Assessment and Plan OK with me to DC home. OV 1 week. No strenuous activity. Lukas Mobley MD Aug 21, 2017 09:58
[2017-08-21] MEDS ORDERED: LISINOPRIL 10 MG TAB PO SCH (10:00)
[2017-08-21] MEDS: METOPROLOL TARTRATE 25 MG TAB PO SCH (10:18)
[2017-08-21] MEDS: SODIUM CHLORIDE 0.9% FLUSH 10 ML FLUSH IV FLUSH SCH (10:20)
--- NOTE | 2017-08-21 10:37 | HHI.PR ---
Subjective Remarks Patient denies chest pain, shortness of breath or pedal edema. Has been cleared for discharge by Dr. Mobley. Objective Vitals Vital Signs Date Time Temp Pulse Resp B/P (MAP) Pulse Ox O2 Delivery O2 Flow Rate FiO2 08/21/17 08:00 95 Room Air 08/21/17 08:00 98.2 72 20 122/74 (90) 95 08/21/17 05:53 73 08/21/17 05:45 20 08/21/17 05:00 72 08/21/17 04:00 98.3 76 18 118/62 (80) 95 08/21/17 04:00 71 08/21/17 04:00 Nasal Cannula 2.00 08/21/17 03:00 68 08/21/17 02:00 78 08/21/17 01:00 78 08/21/17 00:00 75 08/21/17 00:00 98.4 80 20 139/90 (106) 95 08/21/17 00:00 Nasal Cannula 2.00 08/20/17 23:00 72 08/20/17 22:00 76 08/20/17 21:00 76 08/20/17 20:00 Nasal Cannula 2.00 08/20/17 20:00 99.0 77 20 151/86 (107) 98 08/20/17 20:00 78 08/20/17 19:00 88 08/20/17 18:00 80 08/20/17 17:00 85 08/20/17 16:00 85 08/20/17 15:00 98.8 94 18 156/94 (114) 97 08/20/17 12:57 97.8 95 18 120/86 (97) 98 I/O 08/20/17 08/20/17 08/20/17 08/21/17 08/21/17 08/21/17 07:00 15:00 23:00 07:00 15:00 23:00 Intake Total 240 ml Output Total 150 ml 200 ml 200 ml Balance -150 ml -200 ml -200 ml 240 ml Intake Oral 240 ml Output Urine Total 150 ml 200 ml 200 ml # Voids 2 Result Diagram: 08/21/1743108/21/17431 Objective Remarks GENERAL: Well-nourished, well-developed pleasant middle-aged female patient. SKIN: Warm and dry. HEAD: Normocephalic. EYES: No scleral icterus. No injection or drainage. NECK: Supple, trachea midline. No JVD or lymphadenopathy. CARDIOVASCULAR: Regular rate and rhythm without murmurs, gallops, or rubs. RESPIRATORY: Breath sounds equal bilaterally. No accessory muscle use. GASTROINTESTINAL: Abdomen soft, non-tender, nondistended. EXTREMITIES: No cyanosis, or edema. NEUROLOGICAL: Awake, alert, and oriented x 3. Non-focal. A/P Problem List: (1) Non-STEMI (non-ST elevated myocardial infarction) ICD Code: I21.4 - Non-ST elevation (NSTEMI) myocardial infarction Status: Acute (2) CAD (coronary artery disease) ICD Code: I25.10 - Atherosclerotic heart disease of [place] coronary artery without angina pectoris (3) Tobacco abuse ICD Code: Z72.0 - Tobacco use (4) Left ventricular dysfunction with reduced left ventricular function ICD Code: I51.9 - Heart disease, unspecified Assessment and Plan -NSTEMI - status post left heart catheterization yesterday with Dr. Mobley. 2 stents were placed to a diagonal branch off the LAD. LAD showed diffuse disease 30-50% which will be managed medically. Left ventricular ejection fraction was 35%. Patient has been started on metoprolol, Norvasc, Dilantin, aspirin, pravastatin. Patient has been encouraged to stop smoking. She will need to follow-up with Dr. Mobley in his office in 1-2 weeks. I discussed these plans in detail with the patient and her at bedside. Discharge home today. Stephanie Clemente MD Aug 21, 2017 10:37
--- NOTE | 2017-08-21 17:17 | EKG ---
Date Performed: 08/21/2017 Time Performed: 06:07:14 PTAGE: 61 years EKG: Sinus rhythm with PVC(s) Possible left atrial abnormality Poor R wave progression Borderline ECG PREVIOUS TRACING : 08/20/2017 05.29 DOCTOR: Alex Barakat Interpretating Date/Time 08/21/2017 17:15:33
[2017-08-22] MEDS ORDERED: ATORVASTATIN 20 MG TAB PO SCH (09:00)
== END 2017-08-21 11:29 | disposition home or self-care (01) | DRG 247 ==
LOC: PHED 23:10 → PHEDA 08-20 01:36 → PHICU 08-20 02:50 → HDIC 08-20 08:19 → HCIS 08-20 11:44
PROVIDERS: ADMIT Family Medicine; ATTEND Family Medicine
PROC: 4A023N7 Measurement of Cardiac Sampling and Pressure, Left Heart, Percutaneous Approach (ICD-10-PCS; 2017-08-20)
PROC: B2111ZZ Fluoroscopy of Multiple Coronary Arteries using Low Osmolar Contrast (ICD-10-PCS; 2017-08-20)
PROC: B2151ZZ Fluoroscopy of Left Heart using Low Osmolar Contrast (ICD-10-PCS; 2017-08-20)
PROC: 027035Z Dilation of Coronary Artery, One Artery with Two Drug-eluting Intraluminal Devices, Percutaneous Approach (ICD-10-PCS; principal; 2017-08-20 09:45)
DX: I21.4 Non-ST elevation (NSTEMI) myocardial infarction (principal); I10 Essential (primary) hypertension; I25.10 Atherosclerotic heart disease of native coronary artery without angina pectoris; K21.9 Gastro-esophageal reflux disease without esophagitis; K22.70 Barrett's esophagus without dysplasia; F17.210 Nicotine dependence, cigarettes, uncomplicated; M79.7 Fibromyalgia
CPT/HCPCS: 71020; 80048; 80061; 82550; 83735; 84484; 85025; 85610; 85730; 87641; 92928; 93005; 93306; 93458; C1769; C1874; C1887; C1893; J0461; J0583; J1644; J2250; J3010; Q9967

== ENCOUNTER 2017-08-27 16:19 | Inpatient (IN) | payer OTHER ==
[~2017-08-27] VITALS: Ht 171.4 cm; Wt 91.0 kg
[~2017-08-27 16:19] MED LIST: AMLO5 PO; ASPI81 PO; ATOR40TA16 PO; BRIL90TA PO; METO25TA3 PO; TYLE325T PO
[2017-08-27 16:23] VITALS: BP 141/63; PULSE 65; RESP 16; TEMP 98.1; O2SAT 98
--- NOTE | 2017-08-27 16:33 | PD ---
HPI Chief Complaint: Respiratory Symptoms Time Seen by Provider: 16:33 Travel History International Travel<30 days: No Contact w/Intl Traveler<30days: No Traveled to known affect area: No History of Present Illness HPI 61-year-old female came to the emergency room with history of right groin pain and hematoma of the right thigh that's expanding. Patient had a cardiac catheterization done 1 week ago. There is pain in the side of the catheterization. 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 She is also having some shortness of breath. Vital signs were otherwise stable. PFSH Past Medical History Narrative Medical List of her past medical, surgical, social and family history is reviewed from the nursing note. Hx Anticoagulant Therapy: Yes Cardiovascular Problems: Yes (htn on meds, CA x 2 stents) Diminished Hearing: No Fibromyalgia: Yes GERD: Yes Headaches: Yes Hypertension: Yes Musculoskeletal: Yes (Back pain, Back surgery x3) ?: Not Past Surgical History Section: Yes Social History Alcohol Use: No Tobacco Use: Yes (2 pack per day) Substance Use: Yes (marijuana daily) Allergies-Medications (Allergen,Severity, Reaction): Coded Allergies: codeine (Verified Allergy, Severe, 08/27/17) Comments List of her allergies reviewed from the nursing note. Reported Meds & Prescriptions Reported Meds & Active Scripts Active Tgt Aspirin (Aspirin) 81 Mg Chw 81 Mg PO DAILY Metoprolol Tartrate 25 Mg Tab 25 Mg PO Q12HR Atorvastatin (Atorvastatin Calcium) 40 Mg Tab 40 Mg PO DAILY Brilinta (Ticagrelor) 90 Mg Tab 90 Mg PO BID Reported Tylenol (Acetaminophen) 325 Mg Tab 325 Mg PO DIRECTED Narrative Medication List of her home medications reviewed from the nursing note. Review of Systems Except as stated in HPI: all other systems reviewed are Neg Skin: Positive Lumps Physical Exam Narrative GENERAL: Awake, alert, mild distress SKIN: Focused skin assessment warm/dry. Pale. Large ecchymosis on the right proximal to the third of the thigh circumferential. There is tenderness in the right medial aspect of the thigh. There is a 2 x 2 centimeter hematoma that can be felt in the groin over the right femoral artery. HEAD: Atraumatic. Normocephalic. EYES: Pupils equal and round. No scleral icterus. No injection or drainage. ENT: No nasal bleeding or discharge. Mucous membranes pink and moist. NECK: Trachea midline. No JVD. CARDIOVASCULAR: Regular rate and rhythm. No murmur appreciated. RESPIRATORY: No accessory muscle use. Clear to auscultation. Breath sounds equal bilaterally. GASTROINTESTINAL: Abdomen soft, non-tender, nondistended. Hepatic and splenic margins not palpable. MUSCULOSKELETAL: No obvious deformities. No clubbing. No cyanosis. No edema. NEUROLOGICAL: Awake and alert. No obvious cranial nerve deficits. Motor grossly within normal limits. Normal speech. PSYCHIATRIC: Appropriate mood and affect; insight and judgment normal. Data Data Last Documented VS Orders Orders Electrocardiogram (08/27/17 16:42) Basic Metabolic Panel (Bmp) (08/27/17 16:42) Ckmb (Isoenzyme) Profile (08/27/17 16:42) Complete Blood Count With Diff (08/27/17 16:42) Magnesium (Mg) (08/27/17 16:42) Prothrombin Time / Inr (Pt) (08/27/17 16:42) Troponin I (08/27/17 16:42) Chest, Single Ap (08/27/17 16:42) Ecg Monitoring (08/27/17 16:42) Bilateral Bp Monitoring (08/27/17 16:42) Iv Access Insert/Monitor (08/27/17 16:42) Oximetry (08/27/17 16:42) Oxygen Administration (08/27/17 16:42) Sodium Chloride 0.9% Flush (Ns Flush) (08/27/17 16:45) B-Type Natriuretic Peptide (08/27/17 16:42) Us Leg Hematoma/Pseudoaneurysm (08/27/17 ) Type And Screen (08/27/17 17:27) Consent (08/27/17 18:34) Cefazolin Inj (Ancef Inj) (08/27/17 18:45) Admit Order (Ed Use Only) (08/27/17 18:44) Labs Laboratory Tests Test 08/27/17 17:05 White Blood Count 9.1 TH/MM3 Red Blood Count 4.13 MIL/MM3 Hemoglobin 12.4 GM/DL Hematocrit 39.1 % Mean Corpuscular Volume 94.5 FL Mean Corpuscular Hemoglobin 30.0 PG Mean Corpuscular Hemoglobin Concent 31.7 % Red Cell Distribution Width 13.0 % Platelet Count 378 TH/MM3 Mean Platelet Volume 7.5 FL Neutrophils (%) (Auto) 63.7 % Lymphocytes (%) (Auto) 25.1 % Monocytes (%) (Auto) 5.4 % Eosinophils (%) (Auto) 5.1 % Basophils (%) (Auto) 0.7 % Neutrophils # (Auto) 5.7 TH/MM3 Lymphocytes # (Auto) 2.3 TH/MM3 Monocytes # (Auto) 0.5 TH/MM3 Eosinophils # (Auto) 0.5 TH/MM3 Basophils # (Auto) 0.1 TH/MM3 CBC Comment DIFF FINAL Differential Comment Prothrombin Time 10.1 SEC Prothromb Time International Ratio 1.0 RATIO Blood Urea Nitrogen 14 MG/DL Creatinine 0.62 MG/DL Random Glucose 123 MG/DL Calcium Level 8.5 MG/DL Magnesium Level 1.8 MG/DL Sodium Level 137 MEQ/L Potassium Level 4.1 MEQ/L Chloride Level 101 MEQ/L Carbon Dioxide Level 27.4 MEQ/L Anion Gap 9 MEQ/L Estimat Glomerular Filtration Rate 99 ML/MIN Total Creatine Kinase 37 U/L Troponin I LESS THAN 0.02 NG/ML B-Type Natriuretic Peptide 157 PG/ML MDM Medical Decision Making Medical Screen Exam Complete: Yes Emergency Medical Condition: Yes Medical Record Reviewed: Yes Interpretation(s) Twelve-lead EKG was reviewed by me. Normal sinus rhythm, normal axis, lateral wall minimal ST depression and T-wave inversion. Heart rate of 64 bpm. Differential Diagnosis Pseudoaneurysm, hematoma Narrative Course 5:54 PM ultrasound shows a large 5 cm pseudoaneurysm on the right femoral artery. I discussed the case with Dr. Tyson was electronic test technician for vascular surgery and he said he is going to come and see the patient in the ER. Meanwhile blood test results of back and within acceptable limits. I have notified the patient and her about the plan. I've answered all the questions to the best of my ability. Currently waiting for the vascular surgeon for further instructions regarding the decision. 6:[address] Rouse was covering for Dr. Mobley who did the catheterization on this patient 1 week ago. I let him know about the pseudoaneurysm. 6:28 PM patient will be transferred to the main hospital for surgery. Awaiting for the hospitalist to call back for admission. Procedures EKG Prior to Arrival: No Physician Communication Physician Communication Dr. Guzman, Dr. Rouse Diagnosis Primary Impression: Pseudoaneurysm Additional Impression: Status post cardiac catheterization Admitting Information Admitting Physician Requests: Admit Scripts Lisinopril (Lisinopril) 10 Mg Tab 10 MG PO DAILY, #1 TAB Prov: Kristie Ricci MD 08/29/17 Gibson Lemons MD Aug 27, 2017 16:33
[2017-08-27] MEDS ORDERED: SODIUM CHLORIDE 0.9% FLUSH 10 ML FLUSH IVF PRN (16:45)
[2017-08-27 17:19] LABS: AUTOMATED NEUTROPHIL # 5.7 TH/MM3 (1.8-7.7); BASOPHIL # 0.1 TH/MM3 (0-0.2); BASOPHIL % 0.7 % (0.0-2.0); EOSINOPHIL # 0.5 TH/MM3 (0-0.4); EOSINOPHIL % 5.1 % (0.0-4.0); HEMATOCRIT 39.1 % (35.0-46.0); LYMPH % 25.1 % (9.0-44.0); LYMPHOCYTE # 2.3 TH/MM3 (1.0-4.8); MEAN CELL VOLUME 94.5 FL (80.0-100.0); MEAN CORPUSCULAR HGB CONC 31.7 % (32.0-36.0); MONO % 5.4 % (0.0-8.0); NEUT % 63.7 % (16.0-70.0); PLATELET COUNT 378 TH/MM3 (150-450); RED BLOOD COUNT 4.13 MIL/MM3 (4.00-5.30); WHITE BLOOD COUNT 9.1 TH/MM3 (4.0-11.0)
[2017-08-27 17:21] LABS: HEMO FLAGS DIFF FINAL
[2017-08-27 17:27] VITALS: BP_SYST 119; BP_SYST 127; BP_DIAS 64; BP_DIAS 67; PULSE 63; RESP 18; O2SAT 97
[2017-08-27 17:28] LABS: CHLORIDE 101 MEQ/L (98-107); POTASSIUM 4.1 MEQ/L (3.5-5.1); SODIUM (NA) 137 MEQ/L (136-145)
[2017-08-27 17:30] LABS: PROTHROMBIN TIME - PATIENT 10.1 SEC (9.8-11.6)
[2017-08-27 17:31] LABS: ANION GAP 9 MEQ/L (5-15); BICARBONATE 27.4 MEQ/L (21.0-32.0); BLOOD UREA NITROGEN 14 MG/DL (7-18); MAGNESIUM 1.8 MG/DL (1.5-2.5)
[2017-08-27 17:35] LABS: GLOMERULAR FILTRATION RATE 99 ML/MIN (>89)
--- NOTE | 2017-08-27 17:36 | RADRPT ---
EXAM DATE/TIME: 08/27/2017 17:10 [facility] COMPARISON: No previous studies available for comparison. INDICATIONS : Right pseudoaneurysm. Post cardiac catheterization one week ago. MEDICAL HISTORY : Myocardial infarction. Hypertension. Hypercholesterolemia. Anticoagulant therapy. GERD. Fibromyalgia. Substance use. Tobacco use. SURGICAL HISTORY : Coronary artery stent. section. Cholecystectomy. Back surgery x3. ENCOUNTER: Initial ACUITY: 1 week PAIN SCORE: 5/10 LOCATION: Right leg. AREA EVALUATED: Right groin. FINDINGS: Complex fluid collection measuring 5.5 x 3.1 x 2.3 cm in size is identified in the right groin. Doppl er demonstrates characteristic flow of a pseudoaneurysm. Short neck measuring 2 mm in width by 4 mm i n length is noted. CONCLUSION: 5.5 cm right femoral pseudoaneurysm. Mc Orourke MD on August 27, 2017 at 17:32 Board Certified Radiologist. This report was verified electronically.
[2017-08-27 17:44] LABS: CREATINE KINASE 37 U/L (26-192)
--- NOTE | 2017-08-27 17:45 | RADRPT ---
EXAM DATE/TIME: 08/27/2017 17:29 [facility] COMPARISON: US LEG RIGHT HEMATOMA/PSEUDOANEURYSM, August 27, 2017, 17:10. CHEST PA & LAT, August 19, 2017, 2 3:43. INDICATIONS : Patient complains of pain and bruising of right leg after stents were placed last week. Short of royer th. MEDICAL HISTORY : Myocardial infarction. SURGICAL HISTORY : Cardiac stents ENCOUNTER: Initial ACUITY: 2 days PAIN SCORE: 5/10 LOCATION: Bilateral chest FINDINGS: A single view of the chest demonstrates the lungs to be symmetrically aerated without evidence of mas s, infiltrate or effusion. The cardiomediastinal contours are unremarkable. Osseous structures are intact. CONCLUSION: 1. No acute cardiopulmonary disease. Roderick Brady MD on August 27, 2017 at 17:42 Board Certified Radiologist. This report was verified electronically.
[2017-08-27 19:00] VITALS: BP 147/72; PULSE 63; RESP 16; O2SAT 97
[2017-08-27] MEDS ORDERED: ONDANSETRON HCL 4 MG/2 ML VIAL IVP PRN (19:00)
[2017-08-27] MEDS ORDERED: ACETAMINOPHEN 325 MG TAB PO PRN (19:00)
[2017-08-27] MEDS ORDERED: NALOXONE HCL 0.4 MG/ML AMP IV PUSH PRN (19:00)
[2017-08-27] MEDS ORDERED: SODIUM CHLORIDE 0.9% FLUSH 10 ML FLUSH IV FLUSH PRN (19:00)
[2017-08-27 20:00] VITALS: BP 139/69; PULSE 67; RESP 16; O2SAT 96
[2017-08-27 21:45] VITALS: BP 166/79; PULSE 70; RESP 16; O2SAT 96
--- NOTE | 2017-08-27 22:12 | MB ---
cc: SCOTT CARVAJAL MD DATE OF CONSULTATION 08/27/[address] Carvajal, vascular surgery. REASON FOR CONSULTATION Pain in the right groin, large pseudoaneurysm of the right groin. HISTORY OF THE PRESENT ILLNESS This 61-year-old lady underwent cardiac catheterization and two stent placements about a week ago and then noted pain in her right thigh. This became more prominent. The patient came to the emergency room, was worked up, underwent ultrasound which reveals about a 5.8 cm pseudoaneurysm of the right groin with a narrow neck. The question arises about further care. PAST SURGICAL HISTORY Is that of: 1. Three lumbar laminectomies. 2. Cholecystectomy. 3. Recent as above-noted cardiac catheterization with two stents placed. PAST MEDICAL HISTORY Is that of: 1. Hypertension. 2. Low back pain. 3. Cholelithiasis. 4. Recent myocardial infarction prompting the above workup. SOCIAL HISTORY The patient does not drink. Smokes about two packs per day and uses pot. MEDICATIONS Can be found on the record include: 1. Brilinta. 2. Metoprolol. 3. Aspirin. 4. Norvasc. PHYSICAL EXAMINATION GENERAL: Physical examination reveals pleasant 61-year lady in no acute distress. HEENT: Normocephalic. No trauma to the head. Pupils equally reactive. Extraocular muscles intact. NECK: Supple. Bilateral carotid pulses, faint right-sided bruit. CHEST: Clear bilateral breath sounds. HEART: Regular rhythm. ABDOMEN: Soft. Active bowel sounds. No rebound or guarding, masses. EXTREMITIES: The patient has actually bilateral femoral popliteal, dorsalis pedis, posterior tibial pulses on palpation. Feet are warm. Capillary refill is intact. Right leg reveals suffusion of blood and bruising extending from groin down to the knee, mainly medial aspect of the leg and then in the right groin there is a large pulsatile mass measuring between 5 and 6 cm in diameter consistent with a huge pseudoaneurysm of the right groin. NEUROLOGIC: The patient is intact. IMPRESSION AND RECOMMENDATIONS This is a large pseudoaneurysm of the right groin not amenable to injection with thrombin due to the large size. At this point this patient will benefit from surgical resection of the pseudoaneurysm repair of the vessel. The patient can stay on aspirin and Brilinta. Thank you much for referral. I will place the patient on the schedule tomorrow. Scott SANCHEZ/KK /6:29 PM /9:56 PM
[2017-08-27] MEDS: SODIUM CHLORIDE 0.9% FLUSH 10 ML FLUSH IV FLUSH SCH (22:26)
[2017-08-27 22:45] VITALS: BP 150/76; PULSE 66; RESP 16; O2SAT 95
[2017-08-28] VITALS (8 sets, daily range): BP systolic 133–186; BP diastolic 62–84; PULSE 68–81; RESP 16–20; TEMP 97.5–98.4; O2SAT 93–98
[2017-08-28] MEDS ORDERED: LORazepam 0.5 MG TAB PO PRN (10:00)
[2017-08-28] MEDS: SODIUM CHLORIDE 0.9% FLUSH 10 ML FLUSH IV FLUSH SCH ×2 (10:30→21:42)
--- NOTE | 2017-08-28 10:33 | HHI.HP ---
[facility] [place] Primary Care Physician No Primary Care Physician Admission Diagnosis pseudoaneurysm, status post cardiac catheterization Diagnoses: Chief Complaint: Right groin pain Travel History International Travel<30 Days: No Contact w/Intl Traveler <30 Da: No Traveled to Known Affected Are: No History of Present Illness 61-year-old female with a history of CAD status post heart catheterization a week ago presents to the emergency room with complaint of right groin pain and extending bruising. The patient reports her symptoms has been getting worse since her discharge. She denies any chest pain or shortness of breath. She denies lower extremity weakness. Workup in the emergency room revealed a right femoral pseudoaneurysm. Vascular surgery has been consulted. This plan for surgical intervention today. Currently patient reports her pain is controlled. She is anxious about surgery today. Review of Systems Constitutional: DENIES: Fever, Chills Cardiovascular: DENIES: Chest pain, Palpitations Hematologic/lymphatic: COMPLAINS OF: Bruising Except as stated in HPI: all other systems reviewed are Neg Past Family Social History Past Medical History Coronary artery disease, NSTEMI status post heart catheterization with stent placement 2 a week ago. GERD/history of barrettes esophagus Past Surgical History Cholecystectomy Back surgery 3 Heart catheterization Reported Medications Reported Meds & Active Scripts Active Tgt Aspirin (Aspirin) 81 Mg Chw 81 Mg PO DAILY Norvasc (Amlodipine Besylate) 5 Mg Tab 5 Mg PO DAILY Metoprolol Tartrate 25 Mg Tab 25 Mg PO Q12HR Atorvastatin (Atorvastatin Calcium) 40 Mg Tab 40 Mg PO DAILY Brilinta (Ticagrelor) 90 Mg Tab 90 Mg PO BID Reported Tylenol (Acetaminophen) 325 Mg Tab 325 Mg PO DIRECTED Allergies: Coded Allergies: codeine (Verified Allergy, Severe, 08/27/17) Family History Both parents with history of [place], hypertension and diabetes. Social History Current every day smoker. Smokes 2 packs per day since age 15. Denies alcohol. Admits to occasional marijuana. Physical Exam Vital Signs Vital Signs Date Time Temp Pulse Resp B/P (MAP) Pulse Ox O2 Delivery O2 Flow Rate FiO2 08/28/17 10:03 Room Air 08/28/17 08:01 97.8 72 18 150/71 (97) 96 08/28/17 04:46 97.5 76 18 142/75 (97) 98 08/28/17 04:03 Room Air 08/28/17 03:01 94 18 186/84 (118) 97 08/28/17 01:43 68 18 169/77 (107) 96 Room Air 08/28/17 00:01 74 16 160/73 (102) 96 Room Air 08/27/17 22:45 66 16 150/76 (100) 95 Room Air 08/27/17 21:45 70 16 166/79 (108) 96 Room Air 08/27/17 20:00 67 16 139/69 (92) 96 Room Air 08/27/17 19:00 16 97 Room Air 08/27/17 19:00 63 16 147/72 (97) 97 Room Air 08/27/17 17:27 63 18 127/67 (87) 97 Room Air 119/64 (82) 08/27/17 17:10 Room Air 08/27/17 17:10 96 Room Air 08/27/17 16:47 96 Room Air 08/27/17 16:23 98.1 65 16 141/63 (89) 98 Physical Exam GENERAL: This is a well-nourished, well-developed patient, in no apparent distress. SKIN: Large area of ecchymosis involving the right groin extending to the upper thigh HEAD: Atraumatic. Normocephalic. No temporal or scalp tenderness. EYES: Pupils equal round and reactive. Extraocular motions intact. No scleral icterus. No injection or drainage. ENT: Nose without bleeding, purulent drainage or septal hematoma. Throat without erythema, tonsillar hypertrophy or exudate. Uvula midline. Airway patent. NECK: Trachea midline. No JVD or lymphadenopathy. Supple, nontender, no meningeal signs. CARDIOVASCULAR: Regular rate and rhythm without murmurs, gallops, or rubs. RESPIRATORY: Clear to auscultation. Breath sounds equal bilaterally. No wheezes , rales, or rhonchi. GASTROINTESTINAL: Abdomen soft, non-tender, nondistended. No hepato-splenomegaly , or palpable masses. No guarding. MUSCULOSKELETAL: Extremities without clubbing, cyanosis, or edema. No joint tenderness, effusion, or edema noted. No calf tenderness. Negative Homans sign bilaterally. NEUROLOGICAL: Awake and alert. Cranial nerves II through XII intact. Motor and sensory grossly within normal limits. Five out of 5 muscle strength in all muscle groups. Normal speech. Laboratory Laboratory Tests Test 08/27/17 17:05 White Blood Count 9.1 Red Blood Count 4.13 Hemoglobin 12.4 Hematocrit 39.1 Mean Corpuscular Volume 94.5 Mean Corpuscular Hemoglobin 30.0 Mean Corpuscular Hemoglobin Concent 31.7 Red Cell Distribution Width 13.0 Platelet Count 378 Mean Platelet Volume 7.5 Neutrophils (%) (Auto) 63.7 Lymphocytes (%) (Auto) 25.1 Monocytes (%) (Auto) 5.4 Eosinophils (%) (Auto) 5.1 Basophils (%) (Auto) 0.7 Neutrophils # (Auto) 5.7 Lymphocytes # (Auto) 2.3 Monocytes # (Auto) 0.5 Eosinophils # (Auto) 0.5 Basophils # (Auto) 0.1 CBC Comment DIFF FINAL Differential Comment Prothrombin Time 10.1 Prothromb Time International Ratio 1.0 Blood Urea Nitrogen 14 Creatinine 0.62 Random Glucose 123 Calcium Level 8.5 Magnesium Level 1.8 Sodium Level 137 Potassium Level 4.1 Chloride Level 101 Carbon Dioxide Level 27.4 Anion Gap 9 Estimat Glomerular Filtration Rate 99 Total Creatine Kinase 37 Troponin I LESS THAN 0.02 B-Type Natriuretic Peptide 157 Result Diagram: 08/27/17 1705 08/27/17 1705 Imaging Last Impressions Chest X-Ray 08/27/17 1642 Signed Impressions: Service Date/Time: Sunday, August 27, 2017 17:29 - CONCLUSION: 1. No acute cardiopulmonary disease. Roderick Brady MD Lower Extremity Ultrasound 08/27/17 0000 Signed Impressions: Service Date/Time: Sunday, August 27, 2017 17:10 - CONCLUSION: 5.5 cm right femoral pseudoaneurysm. MD Silvia Melendez VTE Risk Assessment Silvia VTE Risk Assessment: Mod/High Risk (score >= 2) VTE Pharm Contraindication: Postop bleeding Caprini Risk Assessment Model Point Value = 1 Point Value = 2 Point Value = 3 Point Value = 5 Age 41-60 Minor surgery BMI > 25 kg/m2 Swollen legs Varicose veins or History of unexplained or recurrent spontaneous Oral contraceptives or hormone replacement Sepsis (< 1 month) Serious lung disease, including pneumonia (< 1 month) Abnormal pulmonary function Acute myocardial infarction Congestive heart failure (< 1 month) History of inflammatory bowel disease Medical patient at bed rest Age 61-74 Arthroscopic surgery Major open surgery (> 45 min) Laparoscopic surgery (> 45 min) Malignancy Confined to bed (> 72 hours) Immobilizing plaster cast Central venous access Age >= 75 History of VTE Family history of VTE Factor V Leiden Prothrombin [id number] Lupus anticoagulant Anticardiolipin antibodies Elevated serum homocysteine Heparin-induced thrombocytopenia Other congenital or acquired thrombophilia Stroke (< 1 month) Elective arthroplasty Hip, pelvis, or leg fracture Acute spinal cord injury (< 1 month) Prophylaxis Regimen Total Risk Factor Score Risk Level Prophylaxis Regimen 0-1 Low Early ambulation 2 Moderate Order ONE of the following: *Sequential Compression Device (SCD) *Heparin 5000 units SQ BID 3-4 Higher Order ONE of the following medications: *Heparin 5000 units SQ TID *Enoxaparin/Lovenox 40 mg SQ daily (WT < 150 kg, CrCl > 30 mL/min) *Enoxaparin/Lovenox 30 mg SQ daily (WT < 150 kg, CrCl > 10-29 mL/min) *Enoxaparin/Lovenox 30 mg SQ BID (WT < 150 kg, CrCl > 30 mL/min) AND/OR *Sequential Compression Device (SCD) 5 or more Highest Order ONE of the following medications: *Heparin 5000 units SQ TID (Preferred with Epidurals) *Enoxaparin/Lovenox 40 mg SQ daily (WT < 150 kg, CrCl > 30 mL/min) *Enoxaparin/Lovenox 30 mg SQ daily (WT < 150 kg, CrCl > 10-29 mL/min) *Enoxaparin/Lovenox 30 mg SQ BID (WT < 150 kg, CrCl > 30 mL/min) AND *Sequential Compression Device (SCD) Assessment and Plan Assessment and Plan 61-year-old female admitted with the right femoral pseudoaneurysm after heart catheterization a week ago. Right femoral pseudoaneurysm: - Vascular surgeries following. Plan for resection and repair of pseudoaneurysm today. - Per vascular surgery, patient can stay on Brilinta and aspirin. CAD: Status post heart catheterization a week ago. 2 stents were placed. LVEF of 35%. - Seems to be stable from a cardiac standpoint. Continue metoprolol, Norvasc, aspirin, and pravastatin. Low salt and fluid restriction. - Need follow-up with cardiology after discharge. Anxiety: Ativan as needed. Physician Certification 2 Midnight Certification Type: Admission for Inpatient Services Order for Inpatient Services The services are ordered in accordance with Medicare regulations or non- Medicare payer requirements, as applicable. In the case of services not specified as inpatient-only, they are appropriately provided as inpatient services in accordance with the 2-midnight benchmark. Estimated LOS (days): 2 days is the estimated time the patient will need to remain in the hospital, assuming treatment plan goals are met and no additional complications. Post-Hospital Plan: Home Kristie Ricci MD Aug 28, 2017 10:33
[2017-08-28] MEDS ORDERED: HEPARIN SODIUM - IV 10,000 UNITS/10 ML VIAL ONE (12:35)
[2017-08-28] MEDS ORDERED: DO NOT ADM ANY ANTICOAGULANT DRUGS PRN (15:05)
[2017-08-28] MEDS ORDERED: *MEPERIDINE 25 MG INJ VIAL PERIprocedural Use ONLY ONE (15:16)
[2017-08-28] MEDS ORDERED: *morphine SULFATE 8 MG/ML PERIprocedure ONLY ONE (15:35)
--- NOTE | 2017-08-28 16:33 | EKG ---
Date Performed: 08/27/2017 Time Performed: 16:35:46 PTAGE: 61 years EKG: Sinus rhythm ST DEVIATION AND MODERATE T-WAVE ABNORMALITY, CONSIDER LATERAL ISCHEMIA ABNORMAL ECG Possible left v entricular hypertrophy PREVIOUS TRACING : 08/21/2017 06.07 Since the prior tracing, there has been an increase i n ventricular voltage. The ST-T wave changes are new. This may reflect the development of left ventri cular hypertrophy or possibly a myocardial ischemia. Clinical correlation advised. The PVCs have reso lved. DOCTOR: Divya Solis Interpretating Date/Time 08/28/2017 16:32:55
[2017-08-28] MEDS: TICAGRELOR 90 MG TAB PO SCH (21:42)
[2017-08-28] MEDS: METOPROLOL TARTRATE 25 MG TAB PO SCH (21:42)
[2017-08-29] VITALS: BP 138/63; PULSE 80; RESP 21; TEMP 98.5; O2SAT 94
[2017-08-29] MEDS: oxyCODONE/ACETAMINOPHEN 5 MG/325 MG TAB PO PRN ×2 (00:13→13:50)
[2017-08-29 04:00] VITALS: BP 159/70; PULSE 77; RESP 22; TEMP 98.8; O2SAT 93
[2017-08-29] MEDS: MORPHINE SULFATE 2 MG/ML INJ IV PUSH PRN ×2 (04:12→08:40)
--- NOTE | 2017-08-29 08:30 | MB ---
cc: BECKIEWEBSTER DATE OF CONSULTATION 08/29/2017 REASON FOR CONSULTATION Recent ME with catheterization procedure and secondary right femoral artery pseudoaneurysm. CHIEF COMPLAINT Pain and swelling right groin. HISTORY OF PRESENT ILLNESS Denia Fritz is a 61-year-old woman who I met at her last admission when she came in with an acute non-ST segment elevation ME. She had a strong family history of smoking, hypertension, hyperlipidemia. She underwent a cath procedures August 20, 2017 and at that time, her LV ejection fraction was only 35%. She had a 99% stenosis of the diagonal branch which was stented. Utilizing a 2.75 x 12 mm Resolute Ricky stent and then a 3.0 x 15 mm overlapping Resolute Ricky stent and then both stents postdilated with a 3.0 mm balloon. She had an excellent angiographic result. At the time of her procedure, her femoral artery access was easy. I entered the common femoral artery using fluoroscopy and required only a single stick. The following day, she complained her right groin was sore, but on physical exam she did not have any hematoma. Apparently the following day, she developed increased pain and swelling and eventually came into the ER where she was found have a large pseudoaneurysm. I have spoken to Dr. Peguero who said she had a tear in the common femoral artery which he repaired and evacuation of hematoma. The patient has had no chest pain since her stent. She has completely quit smoking. She is painful the right groin, but otherwise having no other complaints. PAST HISTORY Her past history is unchanged. PHYSICAL EXAM Physical exam shows a well-developed, well-nourished female in no acute distress. VITAL SIGNS: Charted. HEENT: Exam unremarkable. NECK: No JVD or bruits. CHEST: Clear to auscultation. CARDIAC: S1-S2, regular rate and rhythm, a 1/6 systolic ejection murmur. ABDOMEN: Soft, right groin is postsurgical. EXTREMITIES: There is ecchymosis. Pedal pulses are intact. Left femoral pulse is normal and pedal pulses are intact. Her EKG on admission shows ST-T wave changes laterally which could be from left ventricular or could be from resolving healing phases of her infarct. Her troponin was normal on admission. The remainder of the labs are charted. IMPRESSION Coronary artery disease status post non-STEMI status post stent of the diagonal branch. Good angiographic results. No further pain. The patient has quit smoking. Unfortunately the procedure was complicated by a femoral pseudoaneurysm that has now been repaired. RECOMMENDATIONS 1. Continue her Metoprolol, aspirin, Brilinta and Atorvastatin. 2. Her Amlodipine needs changed to an Missael inhibitor for her LV dysfunction and I have left a prescription for Lisinopril 10 mg daily on the front of her chart. I explain everything to the patient in detail and I will be looking forward to following her up in my office. Thank you for involving me in her care. MD MAGUI Banuelos/JOAQUIM /7:48 AM /8:08 AM
[2017-08-29 08:37] VITALS: BP 162/68; PULSE 69; RESP 20; TEMP 98; O2SAT 94
[2017-08-29] MEDS: SODIUM CHLORIDE 0.9% FLUSH 10 ML FLUSH IV FLUSH SCH (08:38)
[2017-08-29] MEDS: METOPROLOL TARTRATE 25 MG TAB PO SCH (08:41)
[2017-08-29] MEDS: TICAGRELOR 90 MG TAB PO SCH (08:42)
[2017-08-29] MEDS ORDERED: ATORVASTATIN 40 MG TAB PO SCH (09:00)
[2017-08-29] MEDS ORDERED: LISINOPRIL 10 MG TAB PO SCH (09:00)
[2017-08-29] MEDS ORDERED: ASPIRIN 81 MG CHEW TAB PO SCH (09:00)
[2017-08-29] MEDS ORDERED: amLODIPine BESYLATE 5 MG TAB PO SCH (09:00)
[2017-08-29 12:00] VITALS: BP 127/62; PULSE 72; RESP 18; TEMP 98; O2SAT 94
--- NOTE | 2017-08-29 14:28 | PD.CAR.PN ---
CVT Progress Note Subjective/Hospital Course: Patient is status post repair/resection of the pseudoaneurysm of the common femoral artery with repair of the same Incision is clean and dry Patient has excellent palpable distal pulses. Spoken to Dr. Mobley today. Patient will have no ill long-term effects from this minor setback SHAYAN drainage is minimal and drain is to be removed Dressing change Patient can be discharged from my point today with instructions for follow-up in my office in 2 weeks Objective: Vital Signs Date Time Temp Pulse Resp B/P (MAP) Pulse Ox O2 Delivery O2 Flow Rate FiO2 08/29/17 12:00 98.0 72 18 127/62 (83) 94 08/29/17 09:31 12 08/29/17 09:00 Room Air 08/29/17 08:37 98.0 69 20 162/68 (99) 94 08/29/17 04:00 98.8 77 22 159/70 (99) 93 08/29/17 00:00 98.5 80 21 138/63 (88) 94 08/28/17 20:00 98.4 81 20 134/63 (86) 93 08/28/17 16:25 97.7 77 18 133/62 (85) 94 08/28/17 16:00 97.6 80 16 110/55 (73) 95 Room Air 08/28/17 15:50 86 16 120/62 (81) 94 Room Air 08/28/17 15:40 15 08/28/17 15:30 88 16 128/67 (87) 99 Nasal Cannula 3 08/28/17 15:15 93 16 136/69 (91) 98 Nasal Cannula 3 08/28/17 15:00 98.6 97 21 148/72 (97) 97 Nasal Cannula 3 Result Diagram: 08/27/17170408/27/171704 Scott Tyson MD Aug 29, 2017 14:28
--- NOTE | 2017-08-29 14:59 | HHI.PR ---
Subjective Remarks Patient reports she is feeling okay. Anxious to go home. Pain is controlled. Objective Vitals Vital Signs Date Time Temp Pulse Resp B/P (MAP) Pulse Ox O2 Delivery O2 Flow Rate FiO2 08/29/17 12:00 98.0 72 18 127/62 (83) 94 08/29/17 09:31 12 08/29/17 09:00 Room Air 08/29/17 08:37 98.0 69 20 162/68 (99) 94 08/29/17 04:00 98.8 77 22 159/70 (99) 93 08/29/17 00:00 98.5 80 21 138/63 (88) 94 08/28/17 20:00 98.4 81 20 134/63 (86) 93 08/28/17 16:25 97.7 77 18 133/62 (85) 94 08/28/17 16:00 97.6 80 16 110/55 (73) 95 Room Air 08/28/17 15:50 86 16 120/62 (81) 94 Room Air 08/28/17 15:40 15 08/28/17 15:30 88 16 128/67 (87) 99 Nasal Cannula 3 08/28/17 15:15 93 16 136/69 (91) 98 Nasal Cannula 3 08/28/17 15:00 98.6 97 21 148/72 (97) 97 Nasal Cannula 3 I/O 08/28/17 08/28/17 08/28/17 08/29/17 08/29/17 08/29/17 07:00 15:00 23:00 07:00 15:00 23:00 Intake Total 1240 ml 420 ml Output Total 523 ml 730 ml Balance 717 ml -310 ml Intake Oral 240 ml 420 ml Other 1000 ml Output Urine Total 200 ml 700 ml Drainage Total 123 ml 30 ml Estimated Blood Loss 200 ml # Voids 1 1 # Bowel Movements 0 0 Result Diagram: 08/27/17 1705 08/27/17 170 Objective Remarks GENERAL: This is a well-nourished, well-developed patient, in no apparent distress. CARDIOVASCULAR: Normal rate and regular rhythm without murmurs, gallops, or rubs. RESPIRATORY: Good respiratory efforts. Breath sounds equal and clear to auscultation bilaterally. GASTROINTESTINAL: Abdomen soft, non-tender, non-distended. Normal active bowel sounds MUSCULOSKELETAL: Right groin dressing appear intact. There is a SHAYAN drain in place draining serous sanguinous fluid. Extremities without cyanosis, or edema. NEURO: Alert & Oriented x4 to person, place, time, situation. Moves all ext x4 PSYCH: Appropriate mood and affect. A/P Assessment and Plan 61-year-old female admitted with right femoral pseudoaneurysm after heart catheterization a week ago. Right femoral pseudoaneurysm: - Vascular surgeries following. Status post resection and repair of pseudoaneurysm. There is a drain in place. Further plans per vascular surgery. - Per vascular surgery, patient can stay on Brilinta and aspirin. CAD: Status post heart catheterization a week ago. 2 stents were placed. LVEF of 35%. - Seems to be stable from a cardiac standpoint. Patient seen by cardiology. Continue metoprolol, aspirin, and pravastatin. Norvasc changed to lisinopril. Low salt diet and fluid restriction. - Need follow-up with cardiology after discharge. Anxiety: Ativan as needed. Discharge Planning Pending further improvement and clearance from vascular surgery. Kristie Ricci MD Aug 29, 2017 14:59
[2017-08-29] MEDS ORDERED: LISI10TA3 PO (15:33)
--- NOTE | 2017-08-29 15:34 | HHI.DCPOC ---
Discharge Care Plan Diagnosis: (1) Pseudoaneurysm (2) CAD (coronary artery disease) Goals to Promote Your Health * To prevent worsening of your condition and complications * To maintain your health at the optimal level Directions to Meet Your Goals Take your medications as prescribed Follow your dietary instruction Follow activity as directed Keep your appointments as scheduled Take your immunizations and boosters as scheduled If your symptoms worsen call your PCP, if no PCP go to Urgent Care Center or Emergency Room Smoking is Dangerous to Your Health. Avoid second hand smoke Call the 24-hour hour crisis hotline for domestic abuse at Kristie Ricci MD Aug 29, 2017 15:34
[2017-08-29 16:00] VITALS: BP 119/60; PULSE 63; RESP 16; TEMP 98.4; O2SAT 96
--- NOTE | 2017-08-29 20:08 | MP ---
cc: THUAN CARVAJAL MD DATE OF SURGERY 08/28/2017 PREOPERATIVE DIAGNOSIS Status post cardiac cath, pseudoaneurysm of the right common femoral artery measuring about 5.8 cm in diameter. POSTOPERATIVE DIAGNOSIS Status post cardiac cath, pseudoaneurysm of the right common femoral artery measuring about 5.8 cm in diameter plus enlarging pseudoaneurysm. OPERATIVE PROCEDURE Resection of the pseudoaneurysm, repair of the right common femoral artery. SURGEON Haresh Carvajal MD ANESTHESIA General. ESTIMATED BLOOD LOSS: 100 mL. PROCEDURE IN DETAIL The patient prepped and draped usual fashion. A right oblique groin incision made just at the proximal convexity of the pseudoaneurysm clot. This one was deepened down and inguinal ligament is exposed. Weitlaner retractors are placed and then upper arm iron physician general internal medicine is placed. This allows for very careful dissection of the common femoral artery in the most proximal portion and the distal external iliac artery to gain proximal control. Once this one was dissected free, a vessel loop was placed around it and the patient is given 5000 units of heparin. Clamp is not applied yet. Now the pseudoaneurysm is dissected off the surrounding tissues and then opened. There is a large clot in the pseudoaneurysm sac as expected and this whole thing has grown overnight from probably 5.8 cm to at least close to 7 cm and pulsatile. All the clot is removed. Once I removed the clot, there was brisk bleeding from the opening in the common femoral artery which is somewhat irregular measuring about 4-5 mm in diameter and about 5 mm in length. Satinsky clamp is applied proximally which controlled the bleeding. The area was irrigated with copious amounts of saline. There was excellent back bleeding from the vessel and now the repair is obtained with 5-0 Prolene stitches with pledgets. Once this was completed, blood flow was reestablished and the patient has bounding distal pulse. The area irrigated with copious amounts of saline. Incision is debrided and then closed in layers with 2-0 Vicryl and 4-0 Monocryl. A small SHAYAN is placed overnight. The patient tolerated the procedure well. At the end of the procedure, the patient has bounding distal pulses. Thuan SANCHEZ/ /2:52 PM /8:00 PM
== END 2017-08-29 17:13 | disposition home or self-care (01) | DRG 252 ==
LOC: PHED 16:19 → PHEDA 18:45 → N04A 08-28 03:30
PROVIDERS: ADMIT Family Medicine; ATTEND Family Medicine
PROC: 04QK0ZZ Repair Right Femoral Artery, Open Approach (ICD-10-PCS; 2017-08-28)
PROC: 04CK0ZZ Extirpation of Matter from Right Femoral Artery, Open Approach (ICD-10-PCS; principal; 2017-08-28 13:19)
DX: I72.4 Aneurysm of artery of lower extremity (principal); I21.4 Non-ST elevation (NSTEMI) myocardial infarction; I10 Essential (primary) hypertension; F41.9 Anxiety disorder, unspecified; F17.210 Nicotine dependence, cigarettes, uncomplicated; I25.10 Atherosclerotic heart disease of native coronary artery without angina pectoris; Z79.02 Long term (current) use of antithrombotics/antiplatelets; Z79.82 Long term (current) use of aspirin; K21.9 Gastro-esophageal reflux disease without esophagitis; Z95.5 Presence of coronary angioplasty implant and graft; Z82.49 Family history of ischemic heart disease and other diseases of the circulatory system; Z98.890 Other specified postprocedural states; F12.90 Cannabis use, unspecified, uncomplicated
CPT/HCPCS: 71010; 80048; 82550; 83735; 83880; 84484; 85025; 85610; 86850; 86900; 86901; 86920; 88304; 88305; 93005; 93926; J0690; J1644; J2175; J2270